=== PATIENT | female | born 2000 | race Hispanic/Latino ===

== ENCOUNTER 2022-09-27 13:40 | Emergency (ER) | payer SELFPAY ==
[2022-09-27] VITALS (14 sets, daily range): BP systolic 99–113; BP diastolic 66–68; PULSE 78–84; RESP 16; TEMP 36.7; O2SAT 100
--- NOTE | ~2022-09-27 | US_ITS ---
US right upper quadrant INDICATION: Right upper abdominal pain PROCEDURE: Realtime right upper abdominal ultrasound. COMPARISON: No prior studies for comparison. FINDINGS: Pancreas is not visualized. Over echotexture is increased, consistent with fatty infiltrat ion. There is normal directional flow in the portal vein. The gallbladder is normal without stones, gallbladder wall thickening or pericholecystic fluid. Comm on bile duct measures 3 mm. No sonographic Rich's sign. IMPRESSION: 1: Fatty infiltration of the liver. Reviewed, dictated and finalized at location A.
[2022-09-27 14:30] LABS: Basophils Percent Auto 0.2 % (0.2-1.2); Eosinophils Absolute Auto 0.1 K/mm3 (0-0.3); Eosinophils Percent Auto 1.1 % (0-4.4); Hematocrit 37.4 % (37.0-47.0); Hemoglobin 12.6 g/dL (12.0-15.0); Immature Granulocyte Absolute 0.04 K/mm3 (0.00-0.031); Immature Granulocyte Percent A 0.4 % (0-0.5); Lymphocytes Absolute Auto 2.01 K/mm3 (0.9-3.2); Lymphocytes Percent Auto 17.7 % (18.3-44.2); Mean Corpuscular HGB Conc 33.7 g/dl (32-36); Mean Corpuscular Hemoglobin 30.3 pg (26-34); Mean Corpuscular Volume 89.9 fl (80-100); Mean Platelet Volume 9.5 fl (7.4-10.4); Monocytes Absolute Auto 0.5 K/mm3 (0.1-0.6); Neutrophils Absolute Auto 8.7 K/mm3 (1.3-6.7); Neutrophils Percent Auto 76.6 % (45.5-73.1); Platelet Count Result 339 k/mm3 (150-375); Red Blood Count 4.16 M/mm3 (4.2-5.4); White Blood Count 11.4 K/mm3 (4.5-10.0)
[2022-09-27 14:42] LABS: Alanine Aminotransferase 19 U/L (6-35); Albumin Level 4.6 g/dL (3.5-5.1); Alkaline Phosphatase 97 U/L (38-126); Anion Gap 8 mmol/L (8-16); Aspartate Amino Transferase 25 U/L (14-36); Bilirubin,Total 0.6 mg/dL (0.2-1.3); Blood Urea Nitrogen 7 mg/dL (7-17); Calcium 8.9 mg/dL (8.4-10.2); Carbon Dioxide 25 mmol/L (22-30); Chloride 104 mmol/L (98-107); Estimated Glomerular Filt Rate > 60; Glucose 98 mg/dL (65-110); Lipase 69 U/L (23-300); Potassium 3.5 mmol/L (3.4-5.0); Sodium 137 mmol/L (137-145)
[2022-09-27 15:03] LABS: Appearance Urine Clear (Clear); Bacteria Urine None Seen /hpf; Bilirubin Urine Negative (Negative); Blood Urine Trace (Negative); Color Urine Yellow (Yellow); Glucose Urine UA Negative (Negative); Ketones Urine Trace mg/dL (Negative); Leukocyte Esterase Ur Negative LEU/UL (Negative); Nitrate Urine Negative (Negative); Non Pathogenic Casts 0-2; Protein Urine Negative (Negative); RBC Urine 0-2 /hpf (0-2); Specific Grav Ur 1.011 (1.001-1.035); Squamous Epithelial Cell Urine None seen /hpf (Few); Urobilinogen Urine 0.2 mg/dL (<2.0); WBC Urine 0-5 /hpf
[2022-09-27 15:16] LABS: Add Urine Microscopic? YES
--- NOTE | 2022-09-27 15:46 | ED.ABDPAIN ---
HPI - Abdominal Pain General Chief Complaint: Abdominal Pain Stated Complaint: abd pain Time Seen by Provider: 09/27/22 14:33 History of Present Illness HPI narrative: Patient is a 22-year-old female who presents ER with epigastric and right upper quadrant abdominal pain. Intermittent over the last couple days. No fevers or chills or sweats. Occasional nausea and vomiting. No diarrhea. No known sick contacts. No history of kidney stones or gallstones. Denies alleviating factors. Reported to nursing staff that she was concern for as well. Related Data Allergies Allergy/AdvReac Type Severity Reaction Status Date / Time No Known Allergies Allergy Verified 09/27/22 13:48 Review of Systems Review of Systems: All systems reviewed & are unremarkable except as noted in HPI and below Constitutional: Constitutional: Denies chills, Denies fatigue and Denies fever(s) Cardiovascular: Cardiovascular: Denies chest pain and Denies rapid heart rate Respiratory: Respiratory: Denies cough and Denies dyspnea Gastrointestinal: Gastrointestinal: Reports abdominal pain, Denies diarrhea, Reports nausea and Reports vomiting Genitourinary: Genitourinary: Denies nocturia, Denies dysuria and Denies flank pain PMFSH Past Medical History Medical History (Updated 09/27/22 @ 19:27 by Cosmo Merino MD) Healthy female adult Surgical History Surgical History (Updated 09/27/22 @ 19:27 by Cosmo Merino MD) No history of previous surgery Exam Narrative: GENERAL: Well-appearing, well-nourished, and in no acute distress. HEAD: Normocephalic, atraumatic. ENT: Mucous membranes moist. CHEST: Clear to auscultation. No respiratory distress. HEART: Regular rate and rhythm. Normal peripheral pulses. ABDOMEN: Soft, nontender, nondistended. EXTREMITIES: Normal range of motion. No edema. SKIN: Warm, dry, no rash. NEURO: Alert and oriented x3. PSYCH: Normal mood and affect. Course Course Emergency Course: Patient is resting comfortably. She has been informed of results. There is no evidence of cholecystitis. Urine clean without blood to increase concern for kidney stone or pyelonephritis. Patient felt appropriate for discharge with pain medication. May be having some abdominal cramping related to gastroenteritis. Vital Signs Vital signs: Vital Signs Temperature 98.0 F 09/27/22 13:46 Pulse Rate 78 09/27/22 13:46 Respiratory Rate 16 09/27/22 13:46 Blood Pressure 103/66 09/27/22 13:46 Pulse Oximetry 100 09/27/22 13:46 Oxygen Delivery Room Air 09/27/22 13:46 Temperature 98.0 F 09/27/22 13:46 Pulse Rate 84 09/27/22 17:41 Respiratory Rate 16 09/27/22 17:41 Blood Pressure 113/68 09/27/22 17:41 Pulse Oximetry 100 09/27/22 17:41 Oxygen Delivery Room Air 09/27/22 13:46 MDM - Abdominal Pain Lab Data 09/27/22 14:22 09/27/22 14:22 Labs: Lab Results 09/27/22 09/27/22 09/27/22 Range/Units 14:22 14:22 14:49 WBC 11.4 H (4.5-10.0) K/mm3 RBC 4.16 L (4.2-5.4) M/mm3 Hgb 12.6 (12.0-15.0) g/dL Hct 37.4 (37.0-47.0) % MCV 89.9 (80-100) fl MCH 30.3 (26-34) pg MCHC 33.7 (32-36) g/dl RDW 12.0 (11.5-14.5) % Plt Count 339 (150-375) k/mm3 MPV 9.5 (7.4-10.4) fl Immature Gran % (Auto) 0.4 (0-0.5) % Neut % (Auto) 76.6 H (45.5-73.1) % Lymph % (Auto) 17.7 L (18.3-44.2) % [place] % (Auto) 4.0 (2.6-8.5) % Eos % (Auto) 1.1 (0-4.4) % Baso % (Auto) 0.2 (0.2-1.2) % Lymph # (Auto) 2.01 (0.9-3.2) K/mm3 [place] # (Auto) 0.5 (0.1-0.6) K/mm3 Eos # (Auto) 0.1 (0-0.3) K/mm3 Baso # (Auto) 0.0 (0.0-0.1) K/mm3 Abs Immat Gran (auto) 0.04 H (0.00-0.031) K/mm3 Absolute Neuts (auto) 8.7 H (1.3-6.7) K/mm3 Absolute Nucleated RBC 0.0 (0.0-0.012) K/mm3 Nucleated RBC % 0.0 (0.0-0.2) % Sodium 137 (137-145) mmol/L Potassium 3.5 (3.4-5.0) mmol/L [place]
[2022-09-27] MEDS: MORPHINE SULFATE (*CRX) 2 MG/ML INJ IV PUSH (15:59)
== END 2022-09-27 17:47 | disposition home or self-care (01) ==
PROVIDERS: Emergency Provider Emergency Medicine
DX: R10.13 Epigastric pain (principal); K76.0 Fatty (change of) liver, not elsewhere classified
CPT/HCPCS: 36415; 76705; 80053; 81001; 81025; 83690; 85025; 96374; 99284; J2270

== ENCOUNTER 2023-09-06 13:55 | Inpatient (IN) | payer BC, SELFPAY ==
--- NOTE | ~2023-09-06 | XR_ITS ---
EXAMINATION: XR abdomen/kub 1V DATE: 09/08/2023 17:15 INDICATION: Abdominal pain. TECHNIQUE: A supine view of the abdomen on 2 radiographs was obtained. COMPARISON: CT abdomen and pelvis 09/07/2023 FINDINGS: There are no dilated loops of bowel. There is contrast and gas in the biliary tree. There i s mild intrahepatic biliary duct dilatation. The common duct is dilated to 9 mm. IMPRESSION: 1. Mild intrahepatic and extrahepatic biliary duct dilatation. Reviewed, dictated and finalized at location A.
--- NOTE | ~2023-09-06 | US_ITS ---
EXAMINATION: US abdomen limited DATE: 09/06/2023 17:24 INDICATION: Right upper quadrant abdominal pain TECHNIQUE: Multiple grayscale and Doppler ultrasound images of the abdomen were obtained. COMPARISON: 09/27/2022 FINDINGS: Stress portion of the pancreatic body appears normal. The region of the head and tail of the pancreas are obscured. Liver has normal echogenicity and contour, with a smooth surface. No liver lesion iden tified. No intrahepatic biliary duct dilation suspected. Portal venous flow was seen in the hepatopet al, normal direction and has normal Doppler waveform. Visualized proximal aorta and inferior vena cav a are normal. There are multiple shadowing gallstones in the mildly dilated gallbladder which measure s up to 3.4 cm maximal diameter but which is without evident gallbladder wall thickening. The common bile duct is mildly dilated to 7 mm. Sonographic Rich sign was reported as positive by the sonograp her. IMPRESSION: 1. Cholelithiasis with positive sonographic Rich's on but without evident gallbladder wall thickeni ng which is equivocal for acute cholecystitis. Could consider HIDA scan for further evaluation. 2. Mild dilation of the common bile duct to 7 mm which suggests possibility of a nonvisualized distal obstructing stone. Correlate with liver function tests and if clinically indicated would consider MR CP for further evaluation. Reviewed, dictated and finalized at location A. IMPRESSION: 1. Cholelithiasis with positive sonographic Rich's on but without evident gal lbladder wall thickening which is equivocal for acute cholecystitis. Could cons ider HIDA scan for further evaluation. 2. Mild dilation of the common bile duct to 7 mm which suggests possibility of a nonvisualized distal obstructing stone. Correlate with liver function tests a nd if clinically indicated would consider MRCP for further evaluation.
--- NOTE | ~2023-09-06 | CT_ITS ---
EXAMINATION: CT abdomen w con DATE: 09/08/2023 18:06 INDICATION: abdominal pain TECHNIQUE: Computed tomography (CT) of the abdomen was performed with 100 mL Omnipaque-350 intravenou s contrast. Automated exposure control and iterative reconstruction technique were employed. The dose -length product was 132.47 mGy-cm. COMPARISON: ERCP, same date; MR MRCP 09/07/2023. FINDINGS: Lower thorax: Unremarkable Liver: Normal. Biliary/Gallbladder: Borderline gallbladder distention. Gallstones. Mild intrahepatic and extra hepat ic duct dilation. Pneumobilia and retained contrast in the common bile duct, likely secondary to rece nt ERCP. Pancreas: Diffusely enlarged edematous pancreas. Spleen: Normal. Adrenals:No mass. Kidneys: No suspicious mass, obstructing stone, or hydronephrosis. GI tract: No small or large bowel dilation. Normal appendix. Mesentery/Peritoneum: No mass or free air. Moderate volume of free fluid in the upper abdomen and per ipancreatic spaces, extending partially into the bilateral paracolic gutters. No contrast extravasati on. Retroperitoneum: No mass. Soft Tissues: Soft tissues and body wall unremarkable. Bones: No acute osseous finding. IMPRESSION: Severe acute interstitial pancreatitis. Reviewed, dictated and finalized at location K.
--- NOTE | ~2023-09-06 | MR_ITS ---
EXAMINATION: MR MRCP wo/w con/w 3D wo ind DATE: 09/07/2023 12:05 INDICATION: Cholelithiasis with possible obstructing gallstone TECHNIQUE: Magnetic resonance imaging (MRI) of the abdomen was performed without and with 8 mL Multih ance intravenous contrast. Sequences included coronal T2-weighted SS-FSE, coronal T2-weighted FS SS-F SE, coronal T2-weighted FS FIESTA, axial T2-weighted FS FIESTA, axial T2-weighted FIESTA, sagittal T2 -weighted SS-FSE, axial T1-weighted dual-echo FSPGR, axial T2-weighted SS-FSE, axial T1-weighted LAVA , axial T2-weighted STIR FSE. Thick-slab T2-weighted FRFSE-XL images were obtained for magnetic reson ance cholangiopancreatography (MRCP). Rotating maximum intensity projection 3-D reconstructions of th e volumetric data were created by the technologist. Postcontrast sequences included a time course of axial T1-weighted LAVA. COMPARISON: Ultrasound dated 09/06/2023 FINDINGS: ABDOMEN MRI: Heart size is normal. No pericardial or pleural effusion. There are multiple small low signal intensi ty gallstones in the dependent aspect of the gallbladder which is mildly dilated to 3.8 cm without ev ident gallbladder wall thickening or pericholecystic inflammation presenting to suggest acute cholecy stitis. Liver, spleen, pancreas, bilateral adrenal glands and kidneys are normal. Visualized portions of bowels including the appendix are normal. Uterus, bilateral adnexa and visualized bladder are nor mal. No pathologically enlarged abdominal or upper pelvic lymphadenopathy. ABDOMEN MRCP: New mild intrahepatic biliary ductal dilation and slight interval progression in still mild dilation of the common bile duct which now measures up to 8 mm in maximal diameter. A single 4 mm gallstone is seen in the distal common bile duct with small amount of more amorphous appearing sludge in the tape ring distalmost common bile duct. IMPRESSION: 1. Cholelithiasis/choledocholithiasis with mild intra and extrahepatic biliary ductal dilation. Could consider ERCP for stone extraction. Reviewed, dictated and finalized at location A.
--- NOTE | ~2023-09-06 | XR_ITS ---
EXAMINATION: XR abdomen/kub 1V DATE: 09/10/2023 14:20 INDICATION: Abdominal distention. TECHNIQUE: A supine view of the abdomen on 2 radiographs was obtained. COMPARISON: CT abdomen 09/08/2023 FINDINGS: The small and large bowel are normal in caliber. There is a paucity of stool in the colon. IMPRESSION: 1. Nonobstructive bowel gas pattern. Reviewed, dictated and finalized at location A.
--- NOTE | ~2023-09-06 | XR_ITS ---
XR chest 1V portable DATE: 09/10/2023 10:53 INDICATION: Shortness of breath TECHNIQUE: Portable AP chest on 09/10/2023 1049 hours COMPARISON: None FINDINGS: There is suboptimal expansion of the lungs; technologist notes that this was the best inspi ration likely be obtained. There are bibasilar infiltrates and/atelectasis, particularly in the left retrocardiac area. Pneumoni a and aspiration should be considered. Normal heart size. No pleural effusion or pulmonary vascular congestion or pneumothorax is detected. There is prominent gaseous distention of small and large bowel as well as moderate gastric gaseous di stention. IMPRESSION: Bibasilar infiltrate and/atelectasis, most prominent in the left lower lobe Suboptimal expansion of the lungs Reviewed, dictated and finalized at location A. IMPRESSION: Bibasilar infiltrate and/atelectasis, most prominent in the left lo wer lobe Suboptimal expansion of the lungs
--- NOTE | ~2023-09-06 | XR_ITS ---
EXAMINATION: XR ERCP DATE: 09/08/2023 13:06 INDICATION: Choledocholithiasis. TECHNIQUE: 15 spot fluoroscopic images of the right upper quadrant were obtained during endoscopic re trograde cholangiopancreatography (ERCP). Fluoroscopy exposure time was 63 seconds. COMPARISON: MRCP 09/07/2023 FINDINGS: The endoscope is in the second portion of the duodenum. There is contrast opacification of the common duct. Images demonstrate a stone in the common duct and balloon sweeping of the common stephenie t. IMPRESSION: 1. Choledocholithiasis. Please refer to the ERCP procedure note for additional details. Reviewed, dictated and finalized at location A.
--- NOTE | 2023-09-06 14:02 | ED.ABDPAIN ---
HPI - Abdominal Pain General Chief Complaint: Abdominal Pain <Tia Fish PA-C - Last Filed: 09/09/23 09:16> Stated Complaint: abdominal pain/back pain <Tia Fish PA-C - Last Filed: 09/09/23 09:16> Time Seen by Provider: 09/06/23 14:02 <Tia Fish PA-C - Last Filed: 09/09/23 09:16> Focused HPI: This is a 23 year old female that presents to the ER for abdominal pain radiating into the flank. Reports associated nausea and vomiting. Denies fever, diarrhea, or dysuria. GENERAL: Well-appearing, well-nourished, and in no acute distress. HEAD: Normocephalic, atraumatic. CHEST: Clear to auscultation. ?No respiratory distress. HEART: Regular rate and rhythm.? NEURO: ?Alert and oriented x3. Patient screened in triage and initial orders placed.? ?Additional care and disposition to be based upon?diagnostic testing and treatment. <Tia Fish PA-C - Last Filed: 09/09/23 09:16> Related Data Allergies/Adverse Reactions: Allergies Allergy/AdvReac Type Severity Reaction Status Date / Time No Known Allergies Allergy Verified 09/08/23 11:25 <Tia Fish PA-C - Last Filed: 09/09/23 09:16> PMFSH Past Medical History Medical History: Medical History (Updated 09/09/23 @ 09:16 by Tia Fish PA-C) Cholelithiasis with choledocholithiasis Healthy female adult History of vaginal delivery 07/24/23 Nausea and vomiting in adult RUQ pain <Tia Fish PA-C - Last Filed: 09/09/23 09:16> Surgical History Surgical History: Surgical History (Updated 09/07/23 @ 09:45 by JESSE Valdez) No history of previous surgery <Tia Fish PA-C - Last Filed: 09/09/23 09:16> Family History Family History: Family History Other Family history non-contributory <Tia Fish PA-C - Last Filed: 09/09/23 09:16> Social History Social History: Social History Social History: Surrogate medical decision maker: Michele Krishnan, spouse. Code status: Full code. Smoking status: Never smoker Additional living arrangements comments: Lives with and their 2 children in [place]. 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 Spiritual care concerns: Yes <Tia Fish PA-C - Last Filed: 09/09/23 09:16> Exam Narrative: APPEARANCE: Well appearing, no pain, no distress, well-nourished. HEAD: normocephalic, atraumatic. EYES: PERRLA/EOMI, conjunctivae clear. NOSE: Normal no drainage EARS:TMS clear with good light reflex. THROAT: Pharynx clear, no exudate. NECK: Supple. No adenopathy, no masses. RESPIRATORY: Airway patent, respirations nonlabored. Clear to auscultation bilaterally, no rales, rhonchi, wheezing. CARDIOVASCULAR: Regular rate and rhythm without murmurs rubs or gallops. ABDOMINAL: Right upper quadrant abdominal pain MUSCULOSKELETAL: Moves all extremities. Strength/ROM intact, No edema, No calf tenderness. NEURO: Alert. Cranial nerves II through XII intact. Grossly intact <Curtis Shin MD - Last Filed: 09/08/23 21:44> Course Course Emergency Course: Patient was admitted <Curtis Shin MD - Last Filed: 09/08/23 21:44> Vital Signs Vital signs: Vital Signs Temperature 98.8 F 09/06/23 17:59 Pulse Rate 62 09/06/23 17:59 Respiratory Rate 18 09/06/23 17:59 Blood Pressure 112/80 09/06/23 17:59 Pulse Oximetry 100 09/06/23 17:59 Temperature 98.7 F 09/09/23 08:34 Pulse Rate 97 09/09/23 08:34 Respiratory Rate 17 09/09/23 08:34 Blood Pressure 127/76 09/09/23 08:34 Pulse Oximetry 100 09/09/23 08:34 Oxygen Delivery Room Air 09/08/23 20:00 <Tia Fish PA-C - Last Filed: 09/09/23 09:16> Vital Signs Temperature 98.8 F 09/06/23 17:59 Pulse Rate 62 09/06/23 17:59 Respiratory Rate 18 09/06/23 17:59 Blood Pressure 112/80
[2023-09-06 15:06] LABS: Basophils Percent Auto 0.3 % (0.2-1.2); Eosinophils Absolute Auto 0.2 K/mm3 (0-0.3); Eosinophils Percent Auto 2.7 % (0-4.4); Hemoglobin 12.3 g/dL (12.0-15.0); Immature Granulocyte Absolute 0.01 K/mm3 (0.00-0.031); Immature Granulocyte Percent A 0.2 % (0-0.5); Lymphocytes Percent Auto 30.8 % (18.3-44.2); Mean Corpuscular HGB Conc 32.4 g/dl (32-36); Mean Corpuscular Hemoglobin 27.5 pg (26-34); Mean Corpuscular Volume 84.8 fl (80-100); Mean Platelet Volume 9.7 fl (7.4-10.4); Monocytes Absolute Auto 0.4 K/mm3 (0.1-0.6); Monocytes Percent Auto 6.3 % (2.6-8.5); Neutrophils Absolute Auto 3.5 K/mm3 (1.3-6.7); Neutrophils Percent Auto 59.7 % (45.5-73.1); Platelet Count Result 352 k/mm3 (150-375); Red Blood Count 4.48 M/mm3 (4.2-5.4); Red Cell Distribution Width 18.3 % (11.5-14.5); White Blood Count 5.8 K/mm3 (4.5-10.0)
[2023-09-06 15:15] LABS: Alanine Aminotransferase 392 U/L (6-35); Albumin Level 4.7 g/dL (3.5-5.1); Alkaline Phosphatase 345 U/L (38-126); Anion Gap 9 mmol/L (4-12); Aspartate Amino Transferase 442 U/L (14-36); Bilirubin,Total 3.7 mg/dL (0.2-1.3); Blood Urea Nitrogen 8 mg/dL (7-17); Calcium 9.2 mg/dL (8.4-10.2); Carbon Dioxide 25 mmol/L (22-30); Chloride 106 mmol/L (98-107); Estimated Glomerular Filt Rate > 60; Glucose 127 mg/dL (65-110); Lipase 152 U/L (23-300); Potassium 3.7 mmol/L (3.4-5.0); Sodium 140 mmol/L (137-145)
[2023-09-06 16:08] LABS: Bacteria Urine None Seen /hpf; Non Pathogenic Casts 0-2; RBC Urine 0-2 /hpf (0-2); Squamous Epithelial Cell Urine None Seen /hpf (Few); WBC Urine 0-5 /hpf (0-3)
[2023-09-06 16:18] LABS: Appearance Urine Clear (Clear); Color Urine Yellow (Yellow)
[2023-09-06 16:19] LABS: Bilirubin Urine 3+ (Negative); Blood Urine Trace-intact (Negative); Glucose Urine UA Negative (Negative); Ketones Urine Negative (Negative); Leukocyte Esterase Ur Negative LEU/UL (Negative); Nitrate Urine Negative (Negative); Protein Urine Negative (Negative); Specific Grav Ur 1.015 (1.001-1.035); pH Urine 5.5 (5.0-9.0)
[2023-09-06 16:20] LABS: Add Urine Microscopic? YES
[2023-09-06 17:59] VITALS: BP 112/80; PULSE 62; RESP 18; TEMP 37.1; O2SAT 100
[2023-09-06 19:10] VITALS: BP 118/82; PULSE 68; RESP 18; O2SAT 100
[2023-09-06 19:58] VITALS: BMI 18.8
[2023-09-06 19:59] VITALS: BP 116/74; PULSE 64; RESP 16; TEMP 36.6; O2SAT 100
--- NOTE | 2023-09-06 20:17 | ADMGEN ---
This patient, Shaylee Andujar, was admitted to 2 Medical Room 254-01. Patient/family oriented to hospital policies and general routines including ID bracelet, bed and alarms, visiting hours, pain management, procedures, bathroom and other care routines, personal items, smoking policy, room service/diet, and visiting hours. Information on how to activate the Rapid Response Team has been discussed. Patient/Family are encouraged to report perceived risks to care and to ask questions if they do not understand what they are told or what they should do.
[2023-09-06] MEDS: MORPHINE SULFATE (*CRX) 2 MG/ML INJ 1 MG IV PUSH (20:56)
[2023-09-06] MEDS: SODIUM CHLORIDE 0.9% IV 1,000 ML 75 ML IV CONT (21:00)
--- NOTE | 2023-09-06 22:41 | PM.IMHP ---
H&P: HPI History of Present Illness Date/Time: 09/06/23 21:00 Chief Complaint: Abdominal pain. Narrative: This is a very pleasant 23-year-old female without medical history who presented to the emergency department via private vehicle for evaluation of abdominal pain. She is [place] speaking and the following history is obtained with the aid of a video rehab tech service. Tuesday she had tacos for lunch and not long thereafter she developed colicky pain in the epigastric region which radiated to the right upper quadrant and around through the back. She had sweats and nausea with that and endorses 1 episode of emesis. She felt a bit better after vomiting however the pain has continued to come and go since that time. Tylenol did not seem to help much. Her appetite has been poor since then and she has only had a little bit of broth here and there. Family members who had the same lunch have not experienced similar symptoms. She has never had symptoms. She denies fever, hematemesis, bloating, belching, epigastric pain, indigestion, diarrhea, hematochezia, and melena. In the ED: She was afebrile on arrival with stable vital signs. Labs were significant for a total bilirubin of 3.7, AST 442, ALT 392, alkaline phosphatase 345, lipase 152. Abdominal ultrasound showed cholelithiasis with positive sonographic Rich's but without evident gallbladder wall thickening and mild dilation of the common bile duct to 7 mm suggesting the possibility of a nonvisualized distal obstructing stone. She is being admitted in this setting for further evaluation. Review of Systems Review of Systems: Twelve systems were reviewed. She took Tylenol as prescribed and not in excess. No concerns for hepatitis exposure. Denies pruritus and rash. She has a 6-week-old daughter at home and has not had a menstrual cycle since. Except as documented, all other systems were reviewed and are negative. [facility] Past Medical History Medical History Healthy female adult Surgical History Surgical History No history of previous surgery Family History Family History Other Family history non-contributory Social History Social History (Updated 09/06/23 @ 22:47 by Shannan Wilhelm PA-C) Social History: Surrogate medical decision maker: Michele Krishnan, spouse. Code status: Full code. Smoking status: Never smoker Additional living arrangements comments: Lives with and their 2 children in [place]. 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 Spiritual care concerns: Yes Meds Home Medications and Allergies Home Medications Medication Instructions Recorded Confirmed Type famotidine 20 mg tablet (Pepcid) 20 mg PO HS #14 tabs 09/27/22 09/06/23 Rx Allergies Allergy/AdvReac Type Severity Reaction Status Date / Time No Known Allergies Allergy Verified 09/27/22 13:48 Vital Signs Vital Signs - 24 hr 09/06/23 17:59 09/06/23 19:10 09/06/23 19:59 Temperature 98.8 F 98 F Pulse Rate 62 68 64 Respiratory Rate 18 18 16 Blood Pressure 112/80 118/82 116/74 Pulse Oximetry 100 100 100 Exam Narrative: General: Mildly ill-appearing female sitting up in bed in a moderate amount of pain. Weight: 49.7 kg. BMI: 18.8. HEENT: Normocephalic, atraumatic. PERRL, EOMI. Mild scleral icterus. Tacky mucous membranes. Neck: Supple. Respiratory: Lungs are clear to auscultation bilaterally. Cardiovascular: Regular rate and rhythm with S1-S2. Gastrointestinal: Abdomen is soft and nondistended with positive bowel sounds. She is tender to palpation in the epigastric region and right upper quadrant with equivocal Rich sign. No organomegaly. No guarding or rebound tenderness. Skin: Warm and dry. Slight jaundice. Extremities: No cyanosis, clubbing, or edema. Radial
[2023-09-07 04:40] VITALS: BP 123/73; PULSE 67; RESP 16; TEMP 36.7; O2SAT 99
--- NOTE | 2023-09-07 08:20 | PM.IMPN ---
Progress Note: A&P Assessment and Plan (1) Cholelithiasis: Code(s): K80.20 - Calculus of gallbladder without cholecystitis without obstruction Status: Acute Assessment and Plan: 09/07/2023: Ultrasound of abdomen showing cholelithiasis with positive sonographic Rcih's equivocal for acute cholecystitis, mild dilatation of the common bile duct of 7 mm suggestive of a distal obstructing stone MRCP showing cholelithiasis/choledocholithiasis with mild intra and extra hepatic biliary ductal dilatation General surgery consulted GI consulted. Continue with pain control Remain NPO, continue IV fluids Plan for ERCP tomorrow (2) Transaminitis: Code(s): R74.01 - Elevation of levels of liver transaminase levels Status: Acute Assessment and Plan: 09/07/2023: Total bili 3.7, AST 442, ALT 392, alk-phos 345 Rise in bilirubin and liver enzymes likely due to obstructing stone (3) Common bile duct dilation: Code(s): K83.8 - Other specified diseases of biliary tract Status: Acute Assessment and Plan: See above plan of care Time Spent With Patient Time with patient: 25 - 35 minutes Subjective Date/time seen: 09/07/23 08:20 Interval history: This is a 23-year-old female who presented to the hospital 09/06/2023 with chief complaint of abdominal pain. Workup in the hospital included abdominal ultrasound which showed cholelithiasis with positive Rich's consistent with acute cholecystitis mild dilatation of the common bile duct 7 mm suggesting possibility of a non visualized distal obstructing stone. Labs today show total bili of 3.7, AST 42, ALT 392, alk-phos 340, otherwise unremarkable. Patient was given morphine in the ED, GI and General surgery consulted. Patient was made NPO and started on IV fluids. Patient is Macedonian-speaking only, automobile rental representative cart at bedside. On examination today patient is still reporting right upper quadrant pain med. Patient denies any fever, chills, nausea, vomiting, diarrhea, chest pain, shortness a breath. Patient endorses abdominal pain that is epigastric and radiates to her back. Patient went for MRCP which shown cholelithiasis/choledocholithiasis with mild intra and extrahepatic biliary ductal dilatation. Plan for ERCP tomorrow. Review of Systems Review of Systems: All systems reviewed & are unremarkable except as noted in HPI and below Constitutional: Constitutional: Reports as per HPI and Reports no additional constitutional complaints Eyes: Eyes: Reports as per HPI and Reports no additional eye complaints ENT: Reports system reviewed and no additional complaints, except as documented and Reports as per HPI Cardiovascular: Cardiovascular: Reports as per HPI and Reports no additional cardiovascular complaints Respiratory: Respiratory: Reports as per HPI and Reports no additional respiratory complaints Gastrointestinal: Gastrointestinal: Reports as per HPI and Reports no additional gastrointestinal complaints Genitourinary: Genitourinary: Reports no additional female genitourinary complaints and Reports as per HPI Musculoskeletal: Musculoskeletal: Reports no additional musculoskeletal complaints and Reports as per HPI Integumentary/Breasts: Skin/Breast: Reports system reviewed and no additional complaints, except as docu and Reports as per HPI Neurologic: Reports system reviewed and no additional complaints, except as documented and Reports as per HPI Psychiatric: Psychiatric: Reports no additional psychiatric complaints and Reports as per HPI Exam Narrative: General: In no acute distress, well nourished, Macedonian speaking only Head: atraumatic, no encephalopathy Eyes: EOMI, PERRLA, sclera clear ENT: moist mucous membranes, nasal passages clear Neck: supple, no JVD, no adenopathy, trachea midline Cardiac: Normal S1 and S2. RRR, No murmur, gallops or friction rubs, peripheral pulses intact. Respiratory: Lungs clear to auscultation, no adv
--- NOTE | 2023-09-07 09:32 | PM.CNGS ---
Assessment and Plan Assessment and plan (1) Cholelithiasis: Code(s): K80.20 - Calculus of gallbladder without cholecystitis without obstruction Status: Acute Assessment and Plan: RUQ US showing cholelithiasis with a positive sonographic Rich's sign and mild common bile duct dilatation. She has elevated LFTs with a total bilirubin of 3.7. Agree with ordering the MRCP to evaluate for choledocholithiasis. GI has been consulted and she will likely need an ERCP if there are findings of a common bile duct stone. She continues to have abdominal pain and is tender in the RUQ on exam. Discussed with the patient that she will eventually need a laparoscopic cholecystectomy, but timing will depend on the MRCP findings. If she requires an ERCP, then we will follow along to plan for optimal timing of surgery after the ERCP. If GI is not planning an ERCP and there are no findings of choledocholithiasis, then we could consider proceeding with a cholecystectomy sooner. We discussed the details of a laparoscopic cholecystectomy that would be done by Dr. Palmer under general anesthesia. Description of the procedure, risks, benefits, expected outcomes, and expected recovery were discussed. We also discussed the risks of bile leak and bile duct injury, liver/bowel injury, bleeding, and infection. Also discussed the possibility of having to convert to an open procedure if necessary. The patient agrees with proceeding with surgery when appropriate. Will keep her NPO with IV fluids and analgesics as needed for now and follow along. (2) Common bile duct dilation: Code(s): K83.8 - Other specified diseases of biliary tract Status: Acute Assessment and Plan: RUQ US showed mild dilation of the CBD to 7 mm. These findings with the elevated total bilirubin are concerning for choledocholithiasis. Will await MRCP. (3) Transaminitis: Code(s): R74.01 - Elevation of levels of liver transaminase levels Status: Acute Plan I have discussed the patient's case and plan of care with Dr. Palmer. History of Present Illness Consult details Consult date: 09/07/23 Reason for consult: other (Acute cholecystitis) Requesting physician: Curtis Shin MD Narrative: This is a 23-year-old [place]-speaking woman who we have been asked to see in surgical consultation for acute cholecystitis. Our entire discussion and history was obtained by using the video operations controller. She reports a sudden onset of right upper quadrant abdominal pain 3 days ago. She had eaten tacos for lunch and later that evening developed the abdominal pain. Her pain radiated to her mid back. She reports this pain has been constant ever since it started on Tuesday. She endorses nausea and 1 episode of vomiting. She did try eating over the next two days, but her pain was aggravated by food. She reports having a multiple more mild episodes of this pain in the past that would eventually resolve. She did go to the ER at a hospital in [place] about 3 weeks ago for similar pain, but was told she was constipated and her pain did eventually improve. In review of her chart, she was also seen in our ER about a year ago for similar pain with a negative workup and the right upper quadrant ultrasound that showed a normal gallbladder without stones. In the ER yesterday, her labs showed a normal white blood cell count, total bilirubin 3.7, AST 442, ALT 392, alk-phos 345, lipase normal. Right upper quadrant abdominal ultrasound showed cholelithiasis with positive sonographic Rich sign but without evident gallbladder wall thickening which is equivocal for acute cholecystitis. Also seen is mild dilation of the common bile duct to 7 mm which suggests possibility of non visualized distal obstructing stone. The patient was admitted to the hospitalist service. She has an MRCP ordered for today. She is now seen on the medical floor. She is still having right upper quadrant abdominal pain. She also e
[2023-09-07] MEDS: SODIUM CHLORIDE 0.9% IV 1,000 ML 75 ML IV CONT (10:18)
[2023-09-07] MEDS: MORPHINE SULFATE (*CRX) 2 MG/ML INJ 1 MG IV PUSH ×2 (10:18→14:33)
[2023-09-07 12:45] VITALS: BP 105/64; PULSE 65; RESP 16; TEMP 36.3; O2SAT 100
--- NOTE | 2023-09-07 15:10 | WPDGICN ---
Assessment and Plan Assessment and plan (1) Cholelithiasis with choledocholithiasis: Code(s): K80.70 - Calculus of gallbladder and bile duct without cholecystitis without obstruction Status: Acute Assessment and Plan: will proceed with ercp tomorrow to remove bile duct stone, surgery is also on board to consider lap estela (2) Common bile duct dilation: Code(s): K83.8 - Other specified diseases of biliary tract Status: Acute Assessment and Plan: from bile duct stone ercp in morning (3) Transaminitis: Code(s): R74.01 - Elevation of levels of liver transaminase levels Status: Acute Assessment and Plan: biliary related (4) RUQ pain: Code(s): R10.11 - Right upper quadrant pain Status: Acute (5) Nausea and vomiting in adult: Code(s): R11.2 - Nausea with vomiting, unspecified Status: Acute Assessment and Plan: medical support GI Consult Note Consult date/time: 09/07/23 15:10 Reason for consult: ruq pain, elevated liver enzymes HPI: Shaylee Andujar is a 23 year old female female here with new onset of severe ruq with nausea and vomiting. She had similar episode few weeks ago for which went to another hospital, she was told that related to constipation and sent home. This time pain started about 3 days ago after she had tacos and later that evening developed the abdominal pain, radiated to her mid back. Pain now is constant and mostly in ruq. She had one episode of nausea and vomiting at home. Labs showed a normal white blood cell count, total bilirubin 3.7, AST 442, ALT 392, alk-phos 345, lipase normal.? Right upper quadrant abdominal ultrasound showed cholelithiasis with positive sonographic Rich sign but without evident gallbladder wall thickening which is equivocal for acute cholecystitis.? Also seen is mild dilation of the common bile duct to 7 mm which suggests possibility of non visualized distal obstructing stone.??MRCP just reviewed and showed 4 mm in distal CBD. Denies gastric surgeries. Review of Systems Review of Systems: All systems reviewed & are unremarkable except as noted in HPI and below Constitutional: Constitutional: Reports no additional constitutional complaints, Denies fever(s) and Denies weakness Eyes: Eyes: Reports no additional eye complaints ENT: Reports system reviewed and no additional complaints, except as documented Cardiovascular: Cardiovascular: Reports no additional cardiovascular complaints, Denies chest pain and Denies pedal edema Respiratory: Respiratory: Reports no additional respiratory complaints and Denies dyspnea Gastrointestinal: Gastrointestinal: Reports as per HPI, Reports no additional gastrointestinal complaints, Reports abdominal pain, Denies melena, Denies bloating, Reports nausea and Reports vomiting Genitourinary: Genitourinary: Reports no additional female genitourinary complaints Musculoskeletal: Musculoskeletal: Denies neck pain Integumentary/Breasts: Skin/Breast: Denies rash Neurologic: Denies confusion Psychiatric: Psychiatric: Denies behavioral changes [facility], [facility] Past Medical History Medical History (Updated 09/07/23 @ 15:15 by Pete Orr MD) Cholelithiasis with choledocholithiasis Healthy female adult History of vaginal delivery 07/24/23 Nausea and vomiting in adult RUQ pain Surgical History Surgical History (Updated 09/07/23 @ 09:45 by JESSE Valdez) No history of previous surgery Family History Family History Other Family history non-contributory Social History Social History Social History: Surrogate medical decision maker: Michele Krishnan, spouse. Code status: Full code. Smoking status: Never smoker Additional living arrangements comments: Lives with and their 2 children in [place]. Michael
[2023-09-07 17:15] VITALS: BP 114/71; PULSE 74; RESP 12; TEMP 36.6; O2SAT 100
[2023-09-07 20:00] VITALS: BP 107/67; PULSE 65; RESP 18; TEMP 36.7; O2SAT 100
[2023-09-07] MEDS: FAMOTIDINE 20 MG TABLET PO (20:25)
[2023-09-08] VITALS (14 sets, daily range): BP systolic 110–138; BP diastolic 64–87; PULSE 51–96; RESP 15–24; TEMP 36.2–36.9; O2SAT 96–100
[2023-09-08] MEDS: MORPHINE SULFATE (*CRX) 2 MG/ML INJ 1 MG IV PUSH ×2 (01:41→16:46)
[2023-09-08] MEDS: SODIUM CHLORIDE 0.9% IV 1,000 ML 75 ML IV CONT ×2 (01:45→20:11)
--- NOTE | 2023-09-08 08:01 | PM.IMPN ---
Progress Note: A&P Assessment and Plan (1) Nausea and vomiting in adult: Code(s): R11.2 - Nausea with vomiting, unspecified Status: Acute (2) RUQ pain: Code(s): R10.11 - Right upper quadrant pain Status: Acute (3) Cholelithiasis with choledocholithiasis: Code(s): K80.70 - Calculus of gallbladder and bile duct without cholecystitis without obstruction Status: Acute (4) Common bile duct dilation: Code(s): K83.8 - Other specified diseases of biliary tract Status: Acute (5) Cholelithiasis: Code(s): K80.20 - Calculus of gallbladder without cholecystitis without obstruction Status: Acute (6) Transaminitis: Code(s): R74.01 - Elevation of levels of liver transaminase levels Status: Acute Plan (1) Cholelithiasis: ?Code(s): K80.20 - Calculus of gallbladder without cholecystitis without obstruction ?Status:?Acute ?Assessment and Plan: 09/07/2023: Ultrasound of abdomen showing cholelithiasis with positive sonographic Rich's equivocal for acute cholecystitis, mild dilatation of the common bile duct of 7 mm suggestive of a distal obstructing stone MRCP showing cholelithiasis/choledocholithiasis with mild intra and extra hepatic biliary ductal dilatation General surgery consulted, plans laparoscopic cholecystectomy GI consulted. Continue with pain control Remain NPO, continue IV fluids ERCP was done September 07, pain is improving, gallstone was is tried from biliary duct and pancreatic duct (2) Transaminitis: ?Code(s): R74.01 - Elevation of levels of liver transaminase levels ?Status:?Acute ?Assessment and Plan: 09/07/2023: Total bili 3.7, AST 442, ALT 392, alk-phos 345 Rise in bilirubin and liver enzymes likely due to obstructing stone(3) Common bile duct dilation: ?Code(s): K83.8 - Other specified diseases of biliary tract ?Status:?Acute ?Assessment and Plan: See above plan of care Abnormal discharge from vagina Patient delivered her baby in July Noticed abnormal discharge from vagina today Chronic patient is afebrile, blood pressure stable Consult OBGYN for evaluation and treatment Subjective Date/time seen: 09/08/23 08:01 Interval history: Patient is a Indian speaker, the conversation is interpreted by Priya reference #[id number] I saw and examined the patient today. Patient underwent ERCP, gallstone was extracted from common bile duct. Patient feels pain is improving, denies chest pain shortness breath, nausea vomiting. Abdomen pain is improving, patient complaining of abnormal discharge from vagina, patient delivered a baby in July. Patient is afebrile, blood pressure stable Exam Narrative: General: In no acute distress, well nourished, Indian speaking only Head: atraumatic, no encephalopathy Eyes: EOMI, PERRLA, sclera clear ENT: moist mucous membranes, nasal passages clear Neck: supple, no JVD, no adenopathy, trachea midline Cardiac: Normal S1 and S2. RRR, No murmur, gallops or friction rubs, peripheral pulses intact. Respiratory: Lungs clear to auscultation, no adventitious lung sounds Gastrointestinal: soft, non-distended, mid epigastric pain that radiates to her back, normoactive bowel sounds. : voiding without difficulty. Abnormal discharge from vagina Extremities: moves all extremities well, no edema, good ROM, strength 5/5 Skin: clean, dry, intact. No wounds or lesions. Neuro: Alert and oriented x4, cranial nerves intact, no neuro deficits. Psych: normal mood, normal affect, interactive Objective Data Vital Signs Vital Signs: Vital Signs - 24 hr 09/07/23 10:00 09/07/23 12:45 09/07/23 17:15 Temperature 97.4 F L 98 F Pulse Rate 65 74 Respiratory Rate 16 12 Blood Pressure 105/64 114/71 Pulse Oximetry 100 100 Oxygen Delivery Room Air 09/07/23 20:00 09/07/23 20:00 09/08/23 00:00 Temperature 98.0 F 97.1 F L Pulse Rate 65 84 Respiratory Ra
[2023-09-08 08:47] LABS: Basophils Percent Auto 0.5 % (0.2-1.2); Eosinophils Absolute Auto 0.2 K/mm3 (0-0.3); Eosinophils Percent Auto 2.7 % (0-4.4); Hematocrit 37.2 % (37.0-47.0); Hemoglobin 11.8 g/dL (12.0-15.0); Immature Granulocyte Absolute 0.02 K/mm3 (0.00-0.031); Immature Granulocyte Percent A 0.3 % (0-0.5); Lymphocytes Absolute Auto 2.75 K/mm3 (0.9-3.2); Lymphocytes Percent Auto 47.1 % (18.3-44.2); Mean Corpuscular HGB Conc 31.7 g/dl (32-36); Mean Corpuscular Hemoglobin 27.3 pg (26-34); Mean Corpuscular Volume 85.9 fl (80-100); Mean Platelet Volume 9.6 fl (7.4-10.4); Monocytes Absolute Auto 0.4 K/mm3 (0.1-0.6); Monocytes Percent Auto 6.8 % (2.6-8.5); Neutrophils Absolute Auto 2.5 K/mm3 (1.3-6.7); Neutrophils Percent Auto 42.6 % (45.5-73.1); Platelet Count Result 348 k/mm3 (150-375); Red Blood Count 4.33 M/mm3 (4.2-5.4); Red Cell Distribution Width 18.9 % (11.5-14.5); White Blood Count 5.8 K/mm3 (4.5-10.0)
[2023-09-08 09:04] LABS: Alanine Aminotransferase 251 U/L (6-35); Albumin Level 4.2 g/dL (3.5-5.1); Alkaline Phosphatase 376 U/L (38-126); Anion Gap 9 mmol/L (4-12); Aspartate Amino Transferase 135 U/L (14-36); Bilirubin,Total 5.2 mg/dL (0.2-1.3); Blood Urea Nitrogen 9 mg/dL (7-17); Calcium 9.5 mg/dL (8.4-10.2); Carbon Dioxide 21 mmol/L (22-30); Chloride 109 mmol/L (98-107); Estimated CRCL calculation 96 ml/min; Estimated Glomerular Filt Rate > 60; Glucose 83 mg/dL (65-110); Potassium 3.7 mmol/L (3.4-5.0); Sodium 139 mmol/L (137-145)
--- NOTE | 2023-09-08 11:17 | WPDANESEPPF ---
Anes - Initial Pre Proc Eval Procedure: Operation Date: 09/08/23 12:00 Proposed Procedures p Endoscopic Retro Cholangiopancreatogram - Pete Orr MD Date/Time: 09/08/23 11:17 Surgeon: Tommy Lua MD Pre Op Diagnosis: Acute cholecystitis, Obstructing gallstone Patient Data Age: 23 Gender: F Height: 1.63 m Weight: 49.7 kg Last Vital Signs Temp 97.1 F L 09/08/23 04:00 Pulse 70 09/08/23 04:00 Resp 16 09/08/23 04:00 BP 112/64 09/08/23 04:00 Pulse Ox 99 09/08/23 04:00 O2 Del Method Room Air 09/08/23 09:40 Allergies Allergy/AdvReac Type Severity Reaction Status Date / Time No Known Allergies Allergy Verified 09/27/22 13:48 Home Medications Medication Instructions Recorded Confirmed Type famotidine 20 mg tablet (Pepcid) 20 mg PO HS #14 tabs 09/27/22 09/06/23 Rx Laboratory Tests 09/08/23 08:28 WBC 5.8 K/mm3 (4.5-10.0) RBC 4.33 M/mm3 (4.2-5.4) Hgb 11.8 L g/dL (12.0-15.0) Hct 37.2 % (37.0-47.0) MCV 85.9 fl (80-100) MCH 27.3 pg (26-34) MCHC 31.7 L g/dl (32-36) RDW 18.9 H % (11.5-14.5) Plt Count 348 k/mm3 (150-375) MPV 9.6 fl (7.4-10.4) Immature Gran % (Auto) 0.3 % (0-0.5) Neut % (Auto) 42.6 L % (45.5-73.1) Lymph % (Auto) 47.1 H % (18.3-44.2) [place] % (Auto) 6.8 % (2.6-8.5) Eos % (Auto) 2.7 % (0-4.4) Baso % (Auto) 0.5 % (0.2-1.2) Lymph # (Auto) 2.75 K/mm3 (0.9-3.2) [place] # (Auto) 0.4 K/mm3 (0.1-0.6) Eos # (Auto) 0.2 K/mm3 (0-0.3) Baso # (Auto) 0.0 K/mm3 (0.0-0.1) Abs Immat Gran (auto) 0.02 K/mm3 (0.00-0.031) Absolute Neuts (auto) 2.5 K/mm3 (1.3-6.7) Absolute Nucleated RBC 0.000 K/mm3 (0.0-0.012) Nucleated RBC % 0.0 % (0.0-0.2) Sodium 139 mmol/L (137-145) Potassium 3.7 mmol/L (3.4-5.0) Chloride 109 H mmol/L (98-107) Carbon Dioxide 21 L mmol/L (22-30) Anion Gap 9 mmol/L (4-12) BUN 9 mg/dL (7-17) Creatinine 0.60 L mg/dL (0.7-1.0) Estim Creat Clear Calc 96 ml/min Estimated GFR > 60 (59 - ) Glucose 83 mg/dL (65-110) Calcium 9.5 mg/dL (8.4-10.2) Total Bilirubin 5.2 H mg/dL (0.2-1.3) AST 135 H U/L (14-36) ALT 251 H U/L (6-35) Alkaline Phosphatase 376 H U/L (38-126) Total Protein 8.0 g/dL (6.3-8.2) Albumin 4.2 g/dL (3.5-5.1) Patient hx anesthesia problems: none Family hx anesthesia problems: none Results Review: All pre-operative results and documents have been reviewed as part of the pre-operative evaluation. [facility] Past Medical History Medical History (Updated 09/07/23 @ 15:15 by Pete Orr MD) Cholelithiasis with choledocholithiasis Healthy female adult History of vaginal delivery 07/24/23 Nausea and vomiting in adult RUQ pain Surgical History Surgical History (Updated 09/07/23 @ 09:45 by JESSE Valdez) No history of previous surgery Family History Family History Other Family history non-contributory Social History Social History Social History: Surrogate medical decision maker: Michele Krishnan, spouse. Code status: Full code. Smoking status: Never smoker Additional living arrangements comments: Lives with and their 2 children in [place]. 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 Spiritual care concerns: Yes Anes - Eval Final PreProcedure Day of Procedure 09/08/23 11:17 Patient weight: normal Heart: regular rate and rhythm Lungs: clear to auscultation Airway: Mallampati scale class II Neurological: alert and oriented Last oral intake: >/= 8 hours ASA classification: II Emergent: no Anesthetic plan: proceed Anesthesia type and monitoring: general ETT and standard monitoring Results Review: All pre-operative result
[2023-09-08] MEDS: LACTATED RINGERS 1,000 ML 150 ML IV CONT (11:39)
[2023-09-08] MEDS: INDOMETHACIN 50 MG SUPP.RECT RECTAL (12:36)
--- NOTE | 2023-09-08 16:00 | P.PNGS_ITS ---
Progress Note: A&P Assessment and Plan (1) Cholelithiasis with choledocholithiasis: Code(s): K80.70 - Calculus of gallbladder and bile duct without cholecystitis without obstruction Status: Acute Assessment and Plan: * I discussed findings of ERCP with patient. She would like to proceed with laparoscopic cholecystectomy. Will plan to repeat labs tomorrow morning and could consider laparoscopic cholecystectomy if improving. She was asking about the epigastric pain and I discussed that there is a possibility of pancreatitis after ERCP. If this occurs, surgery will have to be delayed until showing signs of improvement. Will continue to follow along with patient. (2) Transaminitis: Code(s): R74.01 - Elevation of levels of liver transaminase levels Status: Acute Subjective Subjective Date/Time Seen: 09/08/23 at 16:00 Interval history: Patient seen and examined on 09/07. Progress note placed as a late entry. Patient seen in room after undergoing ERCP today. Having some epigastric discomfort. Discussed options of proceeding with laparoscopic surgery. Patient would like to stay to have this done if possible. Exam GI: Inspection: normal to inspection and non-distended GI Palp: Yes Tenderness to palpation present (GI) (Mild epigastric tenderness.) Auscultation: normal bowel sounds Objective Data Meds/Results Radiology Results: ITS Impressions Abdomen Ultrasound 09/06/23 17:27 IMPRESSION: 1. Cholelithiasis with positive sonographic Rich's on but without evident gallbladder wall thickening which is equivocal for acute cholecystitis. Could consider HIDA scan for further evaluation. 2. Mild dilation of the common bile duct to 7 mm which suggests possibility of a nonvisualized distal obstructing stone. Correlate with liver function tests and if clinically indicated would consider MRCP for further evaluation. MRCP 09/07/23 12:17 IMPRESSION: 1. Cholelithiasis/choledocholithiasis with mild intra and extrahepatic biliary ductal dilation. Could consider ERCP for stone extraction. Endo Retro Cholangiopancreatogram 09/08/23 13:31 IMPRESSION: 1. Choledocholithiasis. Please refer to the ERCP procedure note for additional details.
[2023-09-08] MEDS: HYDROmorphone HCL INJ (*CRX) 1 MG/ML SYR IV PUSH ×3 (17:22→22:34)
[2023-09-08 17:49] LABS: Hematocrit 44.7 % (37.0-47.0); Hemoglobin 14.6 g/dL (12.0-15.0); Mean Corpuscular HGB Conc 32.7 g/dl (32-36); Mean Corpuscular Hemoglobin 27.7 pg (26-34); Mean Corpuscular Volume 84.8 fl (80-100); Mean Platelet Volume 9.8 fl (7.4-10.4); Platelet Count Result 424 k/mm3 (150-375); Red Blood Count 5.27 M/mm3 (4.2-5.4); Red Cell Distribution Width 19.2 % (11.5-14.5); White Blood Count 20.4 K/mm3 (4.5-10.0)
[2023-09-08 18:11] LABS: Lactic Acid Reflex 1.7 mmol/L (0.7-2.0)
[2023-09-08 18:13] LABS: Alanine Aminotransferase 222 U/L (6-35); Albumin Level 4.3 g/dL (3.5-5.1); Alkaline Phosphatase 406 U/L (38-126); Anion Gap 13 mmol/L (4-12); Aspartate Amino Transferase 134 U/L (14-36); Blood Urea Nitrogen 9 mg/dL (7-17); Calcium 9.5 mg/dL (8.4-10.2); Carbon Dioxide 18 mmol/L (22-30); Chloride 108 mmol/L (98-107); Estimated CRCL calculation 96 ml/min; Estimated Glomerular Filt Rate > 60; Glucose 86 mg/dL (65-110); Potassium 3.3 mmol/L (3.4-5.0); Sodium 139 mmol/L (137-145)
[2023-09-08 19:36] LABS: Amylase > 2400 U/L (30-110); Lipase > 40000 U/L (23-300)
--- NOTE | 2023-09-08 20:32 | PM.EVENT ---
Event Note Event Note Event Note: 09/08/2019 for approximately 20:00 I was called emergently to the patient's room for current concern of possible absent bowel sounds. The patient was writhing in pain and moaning. Patient had underwent ERCP early this afternoon and shortly after were turned to the medical floor patient was having severe abdominal pain. Gastroenterology ordered a stat CT of the abdomen, repeat white count CMP and lactic acid as well as amylase and lipase. Amylase and lipase were greater than the cutoff for maximum values. The patient's white count had jumped to 20,000. AST and ALT as well as alk-phos him are elevated but are comparable to previous values. Lactic acid was normal. Patient's serum bicarb was slightly low. The patient was actively writhing in bed, had generalized pallor, him was moaning in pain. Patient had faint hypoactive bowel sounds. She had generalized tenderness to palpation abdomen. Abdomen was not tense but was slightly distended. The patient has acute pancreatitis status post ERCP. CT scan demonstrated severe acute interstitial pancreatitis. CT scan personally reviewed. Patient is made NPO. IV fluids were increased 150 mL an hour. Patient's pain medications were switched from morphine to Dilaudid 1 mg q.3 hours. Will add Toradol 30 mg IV q.6 hours scheduled for 24 hours. Will also add Pepcid as GI prophylaxis given Toradol use. I have requested nursing staff call and update the general surgeon as to the change in the patient's condition as it appears that the reason NPO order at midnight and if the patient was supposed to go to have cholecystectomy in the morning have wanted the surgeon to be aware of the patient's change in condition for scheduling purposes. The patient and her were updated at bedside. Examination interview were performed with video interpreting services as the patient is Syriac-speaking only. 35 minute spent in critical care activities. Due to a high probability of clinically significant, life threatening deterioration, the patient required my highest level of preparedness to intervene emergently and I personally spent this critical care time directly and personally managing the patient. This critical care time included obtaining a history; examining the patient; pulse oximetry; ordering and review of studies; arranging urgent treatment with development of a management plan; evaluation of patient's response to treatment; frequent reassessment; and discussions with other providers. It was exclusive of separately billable procedures and treating other patients and teaching time. Please see Assessment and Plan section and the rest of the note for further information on patient assessment and treatment.
[2023-09-08] MEDS: KETOROLAC 30 MG/ML VIAL (*BKC) IV PUSH (21:10)
[2023-09-08] MEDS: FAMOTIDINE 20 MG/2 ML VIAL IV PUSH (21:10)
[2023-09-08] MEDS: PIPERACILLIN/TAZ 4.5G/NS 100ML 4.5 GM/100 ML BAG IVPB (21:10)
--- NOTE | 2023-09-08 21:36 | PC.NURSE ---
At 1940 patient was screaming in pain and tossing and turning in the bed. Patient was inconsolable and guarding her stomach. Sypmptoms began during the day shift following an ERCP procedure. The physician in charge of the procedure Dr. Howell was notified and orders for a STAT CT of the abdomen and lab draws were given. The results of which showed acute intersitial pancreatitis in the CT and an amalyse of greater than 2,400 and a lipase of greater than 40,000. Charge nurse, assisted living housekeeper, and hospitalist were all notified of the patient condition and the new results. The hospitalist Dr. Hooper gave new orders for pain medication and a change in fluid medication. This RN will continue to monitor patient condition this shift.
[2023-09-08] MEDS: POTASSIUM CHLORIDE INJ 40 MEQ in SODIUM CHLORIDE 0.9% IV 500 ML 130 MEQ IVPB (21:56)
[2023-09-08] MEDS: SODIUM CHLORIDE 0.9% IV 1,000 ML 150 ML IV CONT (21:57)
[2023-09-09] VITALS (15 sets, daily range): BP systolic 116–134; BP diastolic 76–87; PULSE 82–172; RESP 14–24; TEMP 36.1–37.1; O2SAT 92–100
[2023-09-09] MEDS: HYDROmorphone HCL INJ (*CRX) 1 MG/ML SYR IV PUSH ×5 (01:04→13:44)
[2023-09-09] MEDS: PIPERACILLIN/TAZ 4.5G/NS 100ML 4.5 GM/100 ML BAG IVPB ×3 (02:35→12:04)
[2023-09-09] MEDS: KETOROLAC 30 MG/ML VIAL (*BKC) IV PUSH ×2 (05:15→12:03)
[2023-09-09 05:43] LABS: Basophils Percent Auto 0.1 % (0.2-1.2); Hematocrit 52.7 % (37.0-47.0); Hemoglobin 16.5 g/dL (12.0-15.0); Immature Granulocyte Absolute 0.04 K/mm3 (0.00-0.031); Immature Granulocyte Percent A 0.5 % (0-0.5); Lymphocytes Absolute Auto 1.02 K/mm3 (0.9-3.2); Lymphocytes Percent Auto 13.1 % (18.3-44.2); Mean Corpuscular HGB Conc 31.3 g/dl (32-36); Mean Corpuscular Hemoglobin 27.4 pg (26-34); Mean Corpuscular Volume 87.4 fl (80-100); Mean Platelet Volume 10.1 fl (7.4-10.4); Monocytes Absolute Auto 0.5 K/mm3 (0.1-0.6); Monocytes Percent Auto 5.9 % (2.6-8.5); Neutrophils Absolute Auto 6.3 K/mm3 (1.3-6.7); Neutrophils Percent Auto 80.4 % (45.5-73.1); Platelet Count Result 364 k/mm3 (150-375); Red Blood Count 6.03 M/mm3 (4.2-5.4); Red Cell Distribution Width 20.7 % (11.5-14.5); White Blood Count 7.8 K/mm3 (4.5-10.0)
[2023-09-09 05:57] LABS: Alanine Aminotransferase 156 U/L (6-35); Albumin Level 3.9 g/dL (3.5-5.1); Alkaline Phosphatase 330 U/L (38-126); Anion Gap 12 mmol/L (4-12); Aspartate Amino Transferase 86 U/L (14-36); Bilirubin,Total 2.7 mg/dL (0.2-1.3); Blood Urea Nitrogen 14 mg/dL (7-17); Calcium 8.5 mg/dL (8.4-10.2); Carbon Dioxide 14 mmol/L (22-30); Chloride 112 mmol/L (98-107); Estimated CRCL calculation 66 ml/min; Estimated Glomerular Filt Rate > 60; Glucose 176 mg/dL (65-110); Sodium 138 mmol/L (137-145)
[2023-09-09 06:30] LABS: Alanine Aminotransferase 149 U/L (6-35); Albumin Level 3.7 g/dL (3.5-5.1); Alkaline Phosphatase 300 U/L (38-126); Anion Gap 13 mmol/L (4-12); Aspartate Amino Transferase 82 U/L (14-36); Bilirubin,Total 2.6 mg/dL (0.2-1.3); Blood Urea Nitrogen 15 mg/dL (7-17); Calcium 8.4 mg/dL (8.4-10.2); Carbon Dioxide 13 mmol/L (22-30); Chloride 112 mmol/L (98-107); Estimated CRCL calculation 73 ml/min; Estimated Glomerular Filt Rate > 60; Glucose 179 mg/dL (65-110); Potassium 5.2 mmol/L (3.4-5.0); Sodium 138 mmol/L (137-145)
[2023-09-09] MEDS: LACTATED RINGERS 1,000 ML 999 ML IV CONT ×2 (07:19→07:22)
--- NOTE | 2023-09-09 07:24 | WPDANLDPN2 ---
Anes-Prog Note L&D Date/Time: 09/09/23 07:24 Neuro status: Neuro function grossly intact. Cardiovascular status: normal Respiratory status: normal Airway patency: baseline Mental status: baseline Post-Op hydration status: normal Vital Signs: Last Vital Signs Temp 37.0 C 09/09/23 04:00 Pulse 82 09/09/23 04:00 Resp 14 09/09/23 04:00 BP 132/86 09/09/23 04:00 Pulse Ox 98 09/09/23 04:00 O2 Del Method Room Air 09/08/23 20:00 Pain score (VAS): 0 I/O: Intake & Output 09/08/23 09/08/23 09/09/23 15:59 23:59 07:59 Intake Total 1150 220 600 Balance 1150 220 600 Post-procedural complaints: none Patient feedback: Patient satisfied with anesthetic care.
[2023-09-09] MEDS: FAMOTIDINE 20 MG/2 ML VIAL IV PUSH ×2 (09:25→20:00)
[2023-09-09] MEDS: SODIUM BICARBONATE 8.4% 150 MEQ in DEXTROSE 5% 1,000 ML 950 ML IV CONT (09:25)
--- NOTE | 2023-09-09 09:27 | PM.IMPN ---
Progress Note: A&P Assessment and Plan (1) Nausea and vomiting in adult: Code(s): R11.2 - Nausea with vomiting, unspecified Status: Acute (2) RUQ pain: Code(s): R10.11 - Right upper quadrant pain Status: Acute (3) Cholelithiasis with choledocholithiasis: Code(s): K80.70 - Calculus of gallbladder and bile duct without cholecystitis without obstruction Status: Acute (4) Common bile duct dilation: Code(s): K83.8 - Other specified diseases of biliary tract Status: Acute (5) Cholelithiasis: Qualifiers: Biliary obstruction: with biliary obstruction Cholecystitis acuity: acute Cholecystitis presence: with cholecystitis Cholelithiasis location: bile duct Qualified Code(s): K80.43 - Calculus of bile duct with acute cholecystitis with obstruction Code(s): K80.20 - Calculus of gallbladder without cholecystitis without obstruction Status: Acute (6) Transaminitis: Code(s): R74.01 - Elevation of levels of liver transaminase levels Status: Acute (7) Acute pancreatitis after endoscopic retrograde cholangiopancreatography (ERCP): Code(s): K91.89 - Other postprocedural complications and disorders of digestive system; K85.90 - Acute pancreatitis without necrosis or infection, unspecified Status: Acute Plan (1) Cholelithiasis: ?Code(s): K80.20 - Calculus of gallbladder without cholecystitis without obstruction ?Status:?Acute ?Assessment and Plan: 09/07/2023: Ultrasound of abdomen showing cholelithiasis with positive sonographic Rich's equivocal for acute cholecystitis, mild dilatation of the common bile duct of 7 mm suggestive of a distal obstructing stone MRCP showing cholelithiasis/choledocholithiasis with mild intra and extra hepatic biliary ductal dilatation General surgery consulted, plans laparoscopic cholecystectomy GI consulted. Continue with pain control Remain NPO, continue IV fluids ERCP was done September 07, pain is improving, gallstone was is tried from biliary duct and pancreatic duct (2) Transaminitis: ?Code(s): R74.01 - Elevation of levels of liver transaminase levels ?Status:?Acute ?Assessment and Plan: 09/07/2023: Total bili 3.7, AST 442, ALT 392, alk-phos 345 Rise in bilirubin and liver enzymes likely due to obstructing stone(3) Common bile duct dilation: ?Code(s): K83.8 - Other specified diseases of biliary tract ?Status:?Acute ?Assessment and Plan: See above plan of care Abnormal discharge from vagina Patient delivered her baby in July Noticed abnormal discharge from vagina today Chronic patient is afebrile, blood pressure stable Consult OBGYN for evaluation and treatment Acute pancreatitis after ERCP 09/07 Keep patient p.o. Optimize pain management Start any medications need Patient is afebrile, blood pressure stable, no O2 desaturation CT abdomen September 07 suggest severe interstitial pancreatitis Follow-up GI recommendation Subjective Date/time seen: 09/09/23 09:27 Interval history: Patient is a Faroese speaker, the conversation is interpreted by Violet Santacruz saw and examined the patient today. Patient underwent ERCP yesterday, patient started have abdomen pain yesterday afternoon, severe associated with nausea denies vomiting. Labs showed elevated lipase and amylase, suggesting acute pancreatitis Exam Narrative: General: In no acute distress, well nourished, Faroese speaking only Head: atraumatic, no encephalopathy Eyes: EOMI, PERRLA, sclera clear ENT: moist mucous membranes, nasal passages clear Neck: supple, no JVD, no adenopathy, trachea midline Cardiac: Normal S1 and S2. RRR, No murmur, gallops or friction rubs, peripheral pulses intact. Respiratory: Lungs clear to auscultation, no adventitious lung sounds Gastrointestinal: soft, non-distended, mid epigastric pain that radiates to her back, normoactive bowel sounds. : voiding
--- NOTE | 2023-09-09 15:06 | WPDGIPROGNO ---
Progress Note: A&P Assessment and Plan (1) Cholelithiasis with choledocholithiasis: Code(s): K80.70 - Calculus of gallbladder and bile duct without cholecystitis without obstruction Status: Acute Assessment and Plan: ercp yesterday, stones removed and pancreatic duct was not even cannulated but still she developed pancreatitis better with dilaudid, agree with surgery to start AUTOMOTIVE CONSULTANT for better pain control ok to have ice chips, c/o dry mouth cholecystectomy with pancreatitis is improved (2) Common bile duct dilation: Code(s): K83.8 - Other specified diseases of biliary tract Status: Acute (3) Transaminitis: Code(s): R74.01 - Elevation of levels of liver transaminase levels Status: Acute Assessment and Plan: monitor worsened after pancreatitis (4) Acute pancreatitis after endoscopic retrograde cholangiopancreatography (ERCP): Code(s): K91.89 - Other postprocedural complications and disorders of digestive system; K85.90 - Acute pancreatitis without necrosis or infection, unspecified Status: Acute (5) Nausea and vomiting in adult: Code(s): R11.2 - Nausea with vomiting, unspecified Status: Acute Subjective Date/time seen: 09/09/23 15:06 Interval history: ercp yesterday, first attempt cannulation bile duct without any problem and was successful then stones removed easily, pancreatic duct was not cannulated and she received indomethacin supp but still unfortunately in the evening developed severe abdominal pain, CT scan and blood work consistent with pancreatitis she is npo now, pain better with iv narcotics Review of Systems Review of Systems: All systems reviewed & are unremarkable except as noted in HPI and below Exam Const: Other: c/o abdominal pain but better after pain meds HENMT: Face/Nose/Sinus: Normal nares present Eyes: General: appearance normal, both eyes and all related structures Neck: Neck: supple Resp: Effort & Inspection: normal respiratory effort Cardio: Rate: regular rate GI: Inspection: distended GI Palp: Yes Tenderness to palpation present (GI) (mild ttp in epigastric, no rebound) Skin: General skin exam: normal color Neuro: Speech: normal speech Motor exam (neuro): 5/5 motor strength present throughout Extrem: General: normal to inspection Psych: Affect: Anxious affect present Objective Data Vital Signs Vital Signs: Vital Signs - 24 hr 09/08/23 17:10 09/08/23 20:00 09/08/23 20:00 Temperature 97.8 F Pulse Rate 96 83 Respiratory Rate 24 H Blood Pressure 130/68 138/87 Pulse Oximetry 100 100 Oxygen Delivery Room Air 09/08/23 23:44 09/09/23 04:00 09/09/23 08:34 Temperature 97.8 F 98.6 F 98.7 F Pulse Rate 86 82 97 Respiratory Rate 16 14 17 Blood Pressure 127/86 132/86 127/76 Pulse Oximetry 96 98 100 Oxygen Delivery 09/09/23 07:41 09/09/23 12:28 Temperature 97.0 F L Pulse Rate 97 Respiratory Rate 16 Blood Pressure 134/80 Pulse Oximetry 99 Oxygen Delivery Room Air Intake/Output Intake/Output: Intake & Output 09/06/23 09/07/23 09/08/23 09/09/23 23:59 23:59 23:59 23:59 Intake Total 1587.5 2570 2800 Output Total 400 Balance 1187.5 2570 2800 Meds/Results Medications: Active Medications Generic Name Dose Route Start Last Admin Trade Name Freq PRN Reason Stop Dose Admin Enoxaparin Sodium 40 mg 09/10/23 09:00 Enoxaparin 40 Mg/0.4 Ml Syringe SUB-Q DAILY DAMON Famotidine 20 mg 09/08/23 21:00 09/09/23 09:25 Famotidine 20 Mg/2 Ml Vial IV PUSH 20 mg Q12HR DAMON Administration Sodium Bicarbonate 150 meq/ 1,100 mls @ 150 mls/hr 09/09/23 08:30 09/09/23 09:25 Dextrose IV CONT 150 mls/hr .Q7H20M DAMON Administration Morphine Sulfate 30 mg in 30 mls @ 1 mls/hr 09/09/23 14:24 Morphine Sulfate Apple Checker IV CONT PRN PRN AUTOMOTIVE CONSULTANT Management Protocol 1 MG/HR Ibuprofen 800 mg in 200 mls @ 400 mls/hr 09/09/23 15:00
--- NOTE | 2023-09-09 15:17 | PM.PNGS ---
Progress Note: A&P Assessment and Plan (1) Cholelithiasis with choledocholithiasis: Code(s): K80.70 - Calculus of gallbladder and bile duct without cholecystitis without obstruction Status: Acute Assessment and Plan: Successful ERCP. Hold off on laparoscopic cholecystectomy until pancreatitis improved. (2) Acute pancreatitis after endoscopic retrograde cholangiopancreatography (ERCP): Code(s): K91.89 - Other postprocedural complications and disorders of digestive system; K85.90 - Acute pancreatitis without necrosis or infection, unspecified Status: Acute Assessment and Plan: Still having a lot of pain. I discussed with Dr. Howell and will go ahead and start her on a HUMAN RESOURCES TRAINER pump. I will discontinue the Zosyn as it does not seem she has cholecystitis and antibiotics are not indicated for acute pancreatitis. Subjective Subjective Date/Time Seen: 09/09/23 15:17 Patient reports: still having pain (Pain medication helping only minimally.), no flatus, no bowel movement, nausea and afebrile Interval history: Audiovisual remote interpretive services used for her evaluation. Review of Systems Review of Systems: All systems reviewed & are unremarkable except as noted in HPI and below (HPI) Exam Const: General: no acute distress, alert, awake, ill appearing, tired appearing, uncomfortable and thin Nutritional Appearance: thin Orientation/consciousness: No confusion GI: Inspection: normal to inspection, no abdominal wall ecchymosis, non-distended and scaphoid GI Palp: Yes abdominal tenderness (Diffusely tenderness with guarding), Yes Soft to palpation and Yes Guarding due to palpation present (GI) Auscultation: absent bowel sounds Skin: Lesions: no lesions Rashes: no rashes Neuro: General: moves all extremities, no focal motor deficits and CN's II-XI intact bilaterally Cranial nerves: Yes CN's II-XII intact bilaterally, Yes Equal, round and reactive pupils present, Yes facial symmetry and Yes Midline tongue present Cognition (Neuro): normal cognition Speech: normal speech Extrem: General: no calf tenderness and no edema Psych: Speech and movement: Clear speech present Affect: Anxious affect present Attitude: cooperative Thought content: Yes Normal thought content present Insight: Good insight present (Psych) Judgement: Good judgement present (Psych) Objective Data Vital Signs Vital Signs: Vital Signs - 24 hr 09/08/23 17:10 09/08/23 20:00 09/08/23 20:00 Temperature 36.6 C Pulse Rate 96 83 Respiratory Rate 24 H Blood Pressure 130/68 138/87 Pulse Oximetry 100 100 Oxygen Delivery Room Air 09/08/23 23:44 09/09/23 04:00 09/09/23 08:34 Temperature 36.6 C 37.0 C 37.1 C Pulse Rate 86 82 97 Respiratory Rate 16 14 17 Blood Pressure 127/86 132/86 127/76 Pulse Oximetry 96 98 100 Oxygen Delivery 09/09/23 07:41 09/09/23 12:28 Temperature 36.1 C L Pulse Rate 97 Respiratory Rate 16 Blood Pressure 134/80 Pulse Oximetry 99 Oxygen Delivery Room Air Intake/Output Intake/Output: Intake & Output 09/06/23 09/07/23 09/08/23 09/09/23 23:59 23:59 23:59 23:59 Intake Total 1587.5 2570 2800 Output Total 400 Balance 1187.5 2570 2800 Meds/Results Medications: Active Medications Generic Name Dose Route Start Last Admin Trade Name Freq PRN Reason Stop Dose Admin Enoxaparin Sodium 40 mg 09/10/23 09:00 Enoxaparin 40 Mg/0.4 Ml Syringe SUB-Q DAILY DAMON Famotidine 20 mg 09/08/23 21:00 09/09/23 09:25 Famotidine 20 Mg/2 Ml Vial IV PUSH 20 mg Q12HR DAMON Administration Sodium Bicarbonate 150 meq/ 1,100 mls @ 150 mls/hr 09/09/23 08:30 09/09/23 09:25 Dextrose IV CONT 150 mls/hr .Q7H20M DAMON Administration Morphine Sulfate 30 mg in 30 mls @ 1 mls/hr 09/09/23 14:24 Morphine Sulfate Ship Rigger Apprentice IV CONT PRN PRN HUMAN RESOURCES TRAINER Management Protocol 1 MG/HR Ibuprofen 800 mg in 200 mls @ 400 mls/hr 09/09/23 15:00 Alex
[2023-09-09] MEDS: MORPHINE SULFATE PCA (*CRX) 30 MG/30 ML SYR IV CONT ×2 (15:37→20:31)
[2023-09-09] MEDS: ENOXAPARIN 40 MG/0.4 ML SYRINGE SUB-Q (16:21)
[2023-09-09] MEDS: IBUPROFEN IV 800 MG/200 ML 800 MG/200 ML BAG 400 MG IVPB ×2 (16:21→20:04)
--- NOTE | 2023-09-09 18:33 | ECG_ITS ---
Measurements Intervals [place] Rate: 146 P: 25 SD: 111 QRS: 60 QRSD: 96 T: 16 QT: 326 QTc: 509 Interpretive Statements SINUS TACHYCARDIA WITH SHORT SD INTERVAL MINIMAL Q WAVES- INFERIOR LEADS NONSPECIFIC T-WAVE ABNORMALITY- DIFFUSE LEADS ABNORMAL ECG NO PREVIOUS ECG AVAILABLE FOR COMPARISON Electronically Signed On 09-09-2023 19:01:45 CDT by Serge Gunn D.O.
--- NOTE | 2023-09-09 19:22 | WPDCN ---
Assessment and Plan Assessment and plan (1) Normal menstrual period: Status: Acute Assessment and Plan: Patient's symptoms are consistent with her resuming her periods . She did not have any concerns. She was informed it may take several months for menstrual cycle to regulate. No further follow up needed by screen cutter and trimmer service. HPI Data of Consult Date/Time: 09/08/23 16:30 Requesting Physician: Tommy Lua MD Primary Care Provider: WALLPAPER CLEANER PHYSICIAN Consult Narrative Reason for consult: Vaginal discharge Narrative: History obtained with assistance of command post superintendent service provided by hospital. Shaylee Andujar is a 23 year old female six weeks admitted for abdominal pain. She states that she has a discharge that is consistent with her a light period. She had light lochia after last child and this is her first period. She denies any abnormal odor or vaginal itching. States the discharge is dark blood. Denies vaginal pain. PMFSH Past Medical History Medical History Cholelithiasis with choledocholithiasis Healthy female adult History of vaginal delivery 07/24/23 Nausea and vomiting in adult RUQ pain Surgical History Surgical History No history of previous surgery Family History Family History Other Family history non-contributory Social History Social History Social History: Surrogate medical decision maker: Michele Krishnan, spouse. Code status: Full code. Smoking status: Never smoker Additional living arrangements comments: Lives with and their 2 children in [place]. 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 Spiritual care concerns: Yes Meds Home Medications and Allergies Home Medications Medication Instructions Recorded Confirmed Type famotidine 20 mg tablet (Pepcid) 20 mg PO HS #14 tabs 09/27/22 09/06/23 Rx Allergies Allergy/AdvReac Type Severity Reaction Status Date / Time No Known Allergies Allergy Verified 09/08/23 11:25 Vital Signs Vital Signs - 24 hr 09/08/23 20:00 09/08/23 20:00 09/08/23 23:44 Temperature 97.8 F 97.8 F Pulse Rate 83 86 Respiratory Rate 24 H 16 Blood Pressure 138/87 127/86 Pulse Oximetry 100 96 Oxygen Delivery Room Air Fraction of Inspired Oxygen 09/09/23 04:00 09/09/23 08:34 09/09/23 07:41 Temperature 98.6 F 98.7 F Pulse Rate 82 97 Respiratory Rate 14 17 Blood Pressure 132/86 127/76 Pulse Oximetry 98 100 Oxygen Delivery Room Air Fraction of Inspired Oxygen 09/09/23 12:28 09/09/23 15:37 09/09/23 16:00 Temperature 97.0 F L 97.8 F Pulse Rate 97 130 H Respiratory Rate 16 24 H 17 Blood Pressure 134/80 116/87 Pulse Oximetry 99 98 99 Oxygen Delivery Fraction of Inspired Oxygen 09/09/23 17:02 09/09/23 17:12 09/09/23 18:14 Temperature 97.9 F 97.7 F Pulse Rate 135 H 134 H 143 H Respiratory Rate 23 H 16 16 Blood Pressure 122/78 123/83 Pulse Oximetry 97 98 98 Oxygen Delivery Room Air Fraction of Inspired Oxygen 21 09/09/23 19:15 Temperature 97.3 F L Pulse Rate 172 H Respiratory Rate 18 Blood Pressure 134/80 Pulse Oximetry 98 Oxygen Delivery Fraction of Inspired Oxygen Results Labs 09/09/23 05:07 09/09/23 06:12 Labs: Short CBC 09/09/23 Range/Units 05:07 WBC 7.8 (4.5-10.0) K/mm3 Hgb 16.5 H (12.0-15.0) g/dL Hct 52.7 H (37.0-47.0) % Plt Count 364 (150-375) k/mm3 BMP 09/09/23 09/09/23 05:07 06:12 Sodium 138 138 Potassium 7.0 H* 5.2 H Chloride 112 H 112 H Carbon Dioxide 14 L 13 L BUN 14 D 15 Creatinine 0.90 0.80 Glucose 176 H 179 H Calcium 8.5 8.4 Liver Function 09/09/23 09/09/23 Range/Units 05:07 06:12 Total Bilirubi
[2023-09-09] MEDS: SODIUM CHLORIDE 0.9% IV 1,000 ML 999 ML IV CONT ×2 (19:59→23:31)
[2023-09-09] MEDS: ONDANSETRON INJ 4 MG/2 ML VIAL IV PUSH (20:13)
[2023-09-09] MEDS: SODIUM CHLORIDE 0.9% IV 1,000 ML 200 ML IV CONT (21:34)
[2023-09-09 22:40] LABS: Basophils Absolute Auto 0.1 K/mm3 (0.0-0.1); Basophils Percent Auto 0.6 % (0.2-1.2); Eosinophils Absolute Auto 0.1 K/mm3 (0-0.3); Eosinophils Percent Auto 0.8 % (0-4.4); Hematocrit 41.2 % (37.0-47.0); Hemoglobin 13.5 g/dL (12.0-15.0); Immature Granulocyte Absolute 0.06 K/mm3 (0.00-0.031); Immature Granulocyte Percent A 0.6 % (0-0.5); Lymphocytes Absolute Auto 1.52 K/mm3 (0.9-3.2); Mean Corpuscular HGB Conc 32.8 g/dl (32-36); Mean Corpuscular Hemoglobin 27.7 pg (26-34); Mean Corpuscular Volume 84.4 fl (80-100); Mean Platelet Volume 9.7 fl (7.4-10.4); Monocytes Absolute Auto 0.7 K/mm3 (0.1-0.6); Neutrophils Absolute Auto 8.5 K/mm3 (1.3-6.7); Platelet Count Result 290 k/mm3 (150-375); Red Blood Count 4.88 M/mm3 (4.2-5.4); Red Cell Distribution Width 20.1 % (11.5-14.5); White Blood Count 10.9 K/mm3 (4.5-10.0)
[2023-09-09 22:53] LABS: Alanine Aminotransferase 92 U/L (6-35); Albumin Level 2.8 g/dL (3.5-5.1); Alkaline Phosphatase 177 U/L (38-126); Anion Gap 5 mmol/L (4-12); Aspartate Amino Transferase 84 U/L (14-36); Bilirubin,Total 1.6 mg/dL (0.2-1.3); Blood Urea Nitrogen 16 mg/dL (7-17); Calcium 6.8 mg/dL (8.4-10.2); Carbon Dioxide 23 mmol/L (22-30); Chloride 107 mmol/L (98-107); Estimated CRCL calculation 73 ml/min; Estimated Glomerular Filt Rate > 60; Glucose 192 mg/dL (65-110); Potassium 3.7 mmol/L (3.4-5.0); Sodium 135 mmol/L (137-145)
[2023-09-09] MEDS: PROMETHAZINE HCL 25 MG/ML AMPUL IM (22:53)
[2023-09-09 22:54] LABS: Lactic Acid Reflex 1.8 mmol/L (0.7-2.0)
[2023-09-10] VITALS (25 sets, daily range): BP systolic 111–123; BP diastolic 58–77; PULSE 88–142; RESP 14–25; TEMP 36.5–37.7; O2SAT 88–100
[2023-09-10] MEDS: IBUPROFEN IV 800 MG/200 ML 800 MG/200 ML BAG 400 MG IVPB ×4 (02:35→23:04)
[2023-09-10] MEDS: SODIUM CHLORIDE 0.9% IV 1,000 ML 200 ML IV CONT ×2 (05:40→12:45)
[2023-09-10 05:55] LABS: Hemoglobin 13.1 g/dL (12.0-15.0); Mean Corpuscular HGB Conc 31.2 g/dl (32-36); Mean Corpuscular Hemoglobin 27.6 pg (26-34); Mean Corpuscular Volume 88.6 fl (80-100); Mean Platelet Volume 10.1 fl (7.4-10.4); Platelet Count Result 287 k/mm3 (150-375); Red Blood Count 4.74 M/mm3 (4.2-5.4); Red Cell Distribution Width 20.5 % (11.5-14.5); White Blood Count 11.1 K/mm3 (4.5-10.0)
[2023-09-10 06:42] LABS: Alanine Aminotransferase 79 U/L (6-35); Albumin Level 2.6 g/dL (3.5-5.1); Alkaline Phosphatase 150 U/L (38-126); Anion Gap 4 mmol/L (4-12); Aspartate Amino Transferase 77 U/L (14-36); Bilirubin,Total 1.4 mg/dL (0.2-1.3); Blood Urea Nitrogen 15 mg/dL (7-17); Calcium 6.1 mg/dL (8.4-10.2); Carbon Dioxide 20 mmol/L (22-30); Chloride 111 mmol/L (98-107); Estimated CRCL calculation 73 ml/min; Estimated Glomerular Filt Rate > 60; Glucose 162 mg/dL (65-110); Potassium 3.6 mmol/L (3.4-5.0); Sodium 135 mmol/L (137-145)
[2023-09-10 06:45] LABS: Band Neutrophils Percent 37 % (0-6); Lymphocytes Absolute Manual 0.99 K/mm3 (1.1-4.5); Lymphocytes Percent Manual 9 % (18-44); Neutrophils Absolute Manual 9.32 K/mm3 (1.7-7.2); Neutrophils Percent Manual 47 % (46-73); Total Cells Counted 100
[2023-09-10 06:46] LABS: Basophils Absolute Manual 0.22 K/mm3 (0.0-0.1); Basophils Percent Manual 2 % (0-1); Monocytes Absolute Manual 0.55 K/mm3 (0.1-0.90); Monocytes Percent Manual 5 % (3-9)
[2023-09-10 06:47] LABS: Platelet Estimate Adequate (Adequate); Schistocytes None Seen
[2023-09-10 07:59] LABS: Lipase 9447 U/L (23-300)
--- NOTE | 2023-09-10 08:00 | PM.IMPN ---
Progress Note: A&P Assessment and Plan (1) Nausea and vomiting in adult: Code(s): R11.2 - Nausea with vomiting, unspecified Status: Acute (2) RUQ pain: Code(s): R10.11 - Right upper quadrant pain Status: Acute (3) Cholelithiasis with choledocholithiasis: Code(s): K80.70 - Calculus of gallbladder and bile duct without cholecystitis without obstruction Status: Acute (4) Common bile duct dilation: Code(s): K83.8 - Other specified diseases of biliary tract Status: Acute (5) Cholelithiasis: Qualifiers: Biliary obstruction: with biliary obstruction Cholecystitis acuity: acute Cholecystitis presence: with cholecystitis Cholelithiasis location: bile duct Qualified Code(s): K80.43 - Calculus of bile duct with acute cholecystitis with obstruction Code(s): K80.20 - Calculus of gallbladder without cholecystitis without obstruction Status: Acute (6) Transaminitis: Code(s): R74.01 - Elevation of levels of liver transaminase levels Status: Acute (7) Acute pancreatitis after endoscopic retrograde cholangiopancreatography (ERCP): Code(s): K91.89 - Other postprocedural complications and disorders of digestive system; K85.90 - Acute pancreatitis without necrosis or infection, unspecified Status: Acute Plan Cholelithiasis: ?Code(s): K80.20 - Calculus of gallbladder without cholecystitis without obstruction ?Status:?Acute ?Assessment and Plan: 09/07/2023: Ultrasound of abdomen showing cholelithiasis with positive sonographic Rich's equivocal for acute cholecystitis, mild dilatation of the common bile duct of 7 mm suggestive of a distal obstructing stone MRCP showing cholelithiasis/choledocholithiasis with mild intra and extra hepatic biliary ductal dilatation General surgery consulted, plans laparoscopic cholecystectomy GI consulted. Continue with pain control Remain NPO, continue IV fluids ERCP was done September 07, , gallstone was extracted from biliary duct and pancreatic duct Acute pancreatitis after ERCP 09/07 Keep patient p.o. Optimize pain management Start any medications need Patient is afebrile, blood pressure stable, no O2 desaturation CT abdomen September 07 suggest severe interstitial pancreatitis Follow-up GI recommendation SIRS vs SEPSIS Patient has tachycardia tachypnea, leukocytosis 11,100 with left shift, f/u CXR, blood culture and procalcitonin level Zosyn was stopped September 08, start cefepime and Flagyl 09/09, deescalate antibiotics once sepsis is ruled out X-ray showed bilateral infiltrates and atelectasis, prominent left lower lobe ? Aspiration pneumonia Patient is on antibiotics Abdomen distension Hypoactive bowel saw Possible ileus Keep patient p.o. Follow KUB s/w reglan iv Transaminitis: ?Code(s): R74.01 - Elevation of levels of liver transaminase levels ?Status:?Acute ?Assessment and Plan: 09/07/2023: Total bili 3.7, AST 442, ALT 392, alk-phos 345 Rise in bilirubin and liver enzymes likely due to obstructing stone now the liver enzymes and total bilirubin are trending down Common bile duct dilation: ?Code(s): K83.8 - Other specified diseases of biliary tract ?Status:?Acute ?Assessment and Plan: See above plan of care Abnormal discharge from vagina Patient delivered her baby in July Noticed abnormal discharge from vagina today Chronic patient is afebrile, blood pressure stable Consult OBGYN for evaluation and treatment Subjective Date/time seen: 09/10/23 08:00 Interval history: The conversation is interpreted by nursing scheduler Maria Del Carmen Patient feels better today regarding the pain, still feeling nauseous. Patient had chest tightness, patient also has abdomen pain, abdomen distension. Patient denies chest pain, cough, headache, focal weakness. Labs reviewed. Patient has leukocytosis, tachycardia tachypnea, pulse ox 90
[2023-09-10] MEDS: CEFEPIME 2 GM/NS 50 ML 2 GM/50 ML BAG IVPB ×3 (08:31→22:26)
[2023-09-10] MEDS: ENOXAPARIN 40 MG/0.4 ML SYRINGE SUB-Q (08:31)
[2023-09-10] MEDS: FAMOTIDINE 20 MG/2 ML VIAL IV PUSH ×2 (08:32→22:33)
[2023-09-10] MEDS: metroNIDAZOLE 500 MG/ISO 100ML 500 MG/100 ML BAG 100 MG IVPB ×2 (09:39→17:17)
[2023-09-10] MEDS: MORPHINE SULFATE PCA (*CRX) 30 MG/30 ML SYR IV CONT ×2 (10:39→23:31)
--- NOTE | 2023-09-10 10:44 | WPDGIPROGNO ---
Progress Note: A&P Assessment and Plan (1) Cholelithiasis with choledocholithiasis: Code(s): K80.70 - Calculus of gallbladder and bile duct without cholecystitis without obstruction Status: Acute Assessment and Plan: ercp with stones removed and pancreatic duct was not even cannulated but still she developed pancreatitis better with LOCKER ROOM MANAGER ok to have ice chips, if better we could try liquid diet tomorrow give miralax cholecystectomy once pancreatitis is improved (2) Common bile duct dilation: Code(s): K83.8 - Other specified diseases of biliary tract Status: Acute Assessment and Plan: treated with ercp (3) Transaminitis: Code(s): R74.01 - Elevation of levels of liver transaminase levels Status: Acute Assessment and Plan: monitor worsened after pancreatitis but trending back down again (4) Acute pancreatitis after endoscopic retrograde cholangiopancreatography (ERCP): Code(s): K91.89 - Other postprocedural complications and disorders of digestive system; K85.90 - Acute pancreatitis without necrosis or infection, unspecified Status: Acute Assessment and Plan: medical support (5) Nausea and vomiting in adult: Code(s): R11.2 - Nausea with vomiting, unspecified Status: Acute Assessment and Plan: better (6) SIRS (systemic inflammatory response syndrome): Code(s): R65.10 - Systemic inflammatory response syndrome (SIRS) of non-infectious origin without acute organ dysfunction Status: Acute Assessment and Plan: this is probably from acute pancreatitis empirically on abx for now Subjective Date/time seen: 09/10/23 10:44 Interval history: still with upper abdominal pain and nausea but more comfortable today, she is on keno writer/runner morphine Review of Systems Review of Systems: All systems reviewed & are unremarkable except as noted in HPI and below Exam Const: Other: c/o abdominal pain but better after pain meds HENMT: Face/Nose/Sinus: Normal nares present Eyes: General: appearance normal, both eyes and all related structures Neck: Neck: supple Resp: Effort & Inspection: normal respiratory effort Cardio: Rate: regular rate GI: Inspection: distended GI Palp: Yes Tenderness to palpation present (GI) (mild ttp in epigastric, no rebound) Skin: General skin exam: normal color Neuro: Speech: normal speech Motor exam (neuro): 5/5 motor strength present throughout Extrem: General: normal to inspection Psych: Affect: Anxious affect present Objective Data Vital Signs Vital Signs: Vital Signs - 24 hr 09/09/23 12:28 09/09/23 15:37 09/09/23 16:00 Temperature 97.0 F L 97.8 F Pulse Rate 97 130 H Respiratory Rate 16 24 H 17 Blood Pressure 134/80 116/87 Pulse Oximetry 99 98 99 Oxygen Delivery Oxygen Flow Rate Fraction of Inspired Oxygen 09/09/23 17:02 09/09/23 17:12 09/09/23 18:14 Temperature 97.9 F 97.7 F Pulse Rate 135 H 134 H 143 H Respiratory Rate 23 H 16 16 Blood Pressure 122/78 123/83 Pulse Oximetry 97 98 98 Oxygen Delivery Room Air Oxygen Flow Rate Fraction of Inspired Oxygen 21 09/09/23 19:15 09/09/23 16:00 09/09/23 17:00 Temperature 97.3 F L Pulse Rate 172 H Respiratory Rate 18 18 17 Blood Pressure 134/80 Pulse Oximetry 98 100 98 Oxygen Delivery Oxygen Flow Rate Fraction of Inspired Oxygen 09/09/23 18:00 09/09/23 20:05 09/09/23 20:05 Temperature 97.8 F Pulse Rate 133 H Respiratory Rate 18 20 20 Blood Pressure 121/81 Pulse Oximetry 100 92 94 Oxygen Delivery Oxygen Flow Rate Fraction of Inspired Oxygen 09/09/23 20:00 09/09/23 21:57 09/09/23 22:30 Temperature Pulse Rate 133 H Respiratory Rate 18 20 Blood Pressure Pulse Oximetry 92 94 Oxygen Delivery Room Air Oxygen Flow Rate Fraction of Inspired Oxygen 09/09/23 23:54 09/10/23 01:56 09/10/23 00:30 Temperature 97.4 F L Pulse Rate
[2023-09-10 11:22] LABS: Procalcitonin 0.3 ng/mL
--- NOTE | 2023-09-10 14:06 | PM.PNGS ---
Progress Note: A&P Assessment and Plan (1) Acute pancreatitis after endoscopic retrograde cholangiopancreatography (ERCP): Code(s): K91.89 - Other postprocedural complications and disorders of digestive system; K85.90 - Acute pancreatitis without necrosis or infection, unspecified Status: Acute Assessment and Plan: Pain under better control with NEUROSURGERY SPINE PHYSICIAN. Patient admits to being somewhat groggy, almost certainly due to NEUROSURGERY SPINE PHYSICIAN dose. Will decrease the bolus dose to 1 mg. She remains very tachycardic but kidney function is good. She received lot of saline with a bolus last night and 200 cc an hour all night. Not surprisingly, she is edematous and explained that this is due to severe pancreatitis and sequestration of fluids. Keep NPO for now, possibly start liquids tomorrow if continues to improve. I stopped antibiotics yesterday as they have no role in pancreatitis unless abscess or infected pancreatic necrosis neither of which have been present. (2) Cholelithiasis with choledocholithiasis: Code(s): K80.70 - Calculus of gallbladder and bile duct without cholecystitis without obstruction Status: Acute Assessment and Plan: Plan to proceed with cholecystectomy once acute pancreatitis has subsided. Recheck lipase tomorrow. If remains elevated will recheck CT scan. Subjective Subjective Date/Time Seen: 09/10/23 14:06 Patient reports: feels better, pain is less, no bowel movement and afebrile Interval history: Patient evaluated with the assistance of audiovisual vision specialist Review of Systems Review of Systems: All systems reviewed & are unremarkable except as noted in HPI and below (HPI) Exam Const: General: cooperative, comfortable, no acute distress, awake, tired appearing and thin Orientation/consciousness: patient oriented x3 and No confusion Resp: Effort & Inspection: normal respiratory effort Auscultation: clear to auscultation bilaterally, no rales, no rhonchi and no wheezes Cardio: Rate: tachycardic Heart sounds: no gallops, no murmurs and no rubs GI: Inspection: Abdominal wall edema and distended GI Palp: Yes Soft to palpation, Yes Tenderness to palpation present (GI) (Upper abdomen only) and Yes Guarding due to palpation present (GI) Auscultation: normal bowel sounds Psych: Affect: normal affect Attitude: cooperative Thought process: Normal thought process present Thought content: Yes Normal thought content present Objective Data Vital Signs Vital Signs: Vital Signs - 24 hr 09/09/23 15:37 09/09/23 16:00 09/09/23 17:02 Temperature 36.6 C Pulse Rate 130 H 135 H Respiratory Rate 24 H 17 23 H Blood Pressure 116/87 Pulse Oximetry 98 99 97 Oxygen Delivery Room Air Oxygen Flow Rate Fraction of Inspired Oxygen 21 09/09/23 17:12 09/09/23 18:14 09/09/23 19:15 Temperature 36.6 C 36.5 C 36.3 C L Pulse Rate 134 H 143 H 172 H Respiratory Rate 16 16 18 Blood Pressure 122/78 123/83 134/80 Pulse Oximetry 98 98 98 Oxygen Delivery Oxygen Flow Rate Fraction of Inspired Oxygen 09/09/23 16:00 09/09/23 17:00 09/09/23 18:00 Temperature Pulse Rate Respiratory Rate 18 17 18 Blood Pressure Pulse Oximetry 100 98 100 Oxygen Delivery Oxygen Flow Rate Fraction of Inspired Oxygen 09/09/23 20:05 09/09/23 20:05 09/09/23 20:00 Temperature 36.6 C Pulse Rate 133 H Respiratory Rate 20 20 Blood Pressure 121/81 Pulse Oximetry 92 94 Oxygen Delivery Room Air Oxygen Flow Rate Fraction of Inspired Oxygen 09/09/23 21:57 09/09/23 22:30 09/09/23 23:54 Temperature 36.3 C L Pulse Rate 133 H 124 H Respiratory Rate 18 20 18 Blood Pressure 129/79 Pulse Oximetry 92 94 92 Oxygen Delivery Oxygen Flow Rate Fraction of Inspired Oxygen 09/10/23 01:56 09/10/23 00:30 09/10/23 02:12 Temperature Pulse Rate 139 H Respiratory Rate 20 18 18 Blood Pressure Pulse Oximetry 92 92 92 Oxygen Delivery Oxygen Flow Rate
[2023-09-10] MEDS: KCL 20 MEQ/D5/0.9% SOD CHL 1,000 ML 125 ML IV CONT (14:43)
[2023-09-10] MEDS: METOCLOPRAMIDE HCL INJ 10 MG/2 ML VIAL IV PUSH ×2 (18:26→23:09)
--- NOTE | 2023-09-10 19:45 | PC.NURSE ---
has been assisting patient with bedpan without notifying staff. Unable to get accurate urine output today. Patient and family educated on importance of letting us know when patient needs to use the restroom.
[2023-09-11] VITALS (13 sets, daily range): BP systolic 98–119; BP diastolic 62–67; PULSE 100–145; RESP 14–20; TEMP 36.4–36.8; O2SAT 95–100
[2023-09-11] MEDS: metroNIDAZOLE 500 MG/ISO 100ML 500 MG/100 ML BAG 100 MG IVPB ×3 (00:56→17:44)
[2023-09-11] MEDS: KCL 20 MEQ/D5/0.9% SOD CHL 1,000 ML 125 ML IV CONT ×3 (01:03→22:00)
[2023-09-11] MEDS: ONDANSETRON INJ 4 MG/2 ML VIAL IV PUSH (03:20)
[2023-09-11] MEDS: CEFEPIME 2 GM/NS 50 ML 2 GM/50 ML BAG IVPB ×3 (05:21→22:25)
[2023-09-11] MEDS: METOCLOPRAMIDE HCL INJ 10 MG/2 ML VIAL IV PUSH ×3 (05:26→17:44)
[2023-09-11 05:53] LABS: Hematocrit 33.4 % (37.0-47.0); Hemoglobin 10.2 g/dL (12.0-15.0); Mean Corpuscular HGB Conc 30.5 g/dl (32-36); Mean Corpuscular Hemoglobin 27.8 pg (26-34); Mean Platelet Volume 10.5 fl (7.4-10.4); Platelet Count Result 215 k/mm3 (150-375); Red Blood Count 3.67 M/mm3 (4.2-5.4); Red Cell Distribution Width 20.8 % (11.5-14.5); White Blood Count 9.7 K/mm3 (4.5-10.0)
[2023-09-11] MEDS: IBUPROFEN IV 800 MG/200 ML 800 MG/200 ML BAG 400 MG IVPB ×3 (06:09→19:55)
[2023-09-11] MEDS: PROMETHAZINE HCL 25 MG/ML AMPUL IM (06:10)
[2023-09-11 06:31] LABS: Alanine Aminotransferase 58 U/L (6-35); Albumin Level 2.5 g/dL (3.5-5.1); Alkaline Phosphatase 95 U/L (38-126); Anion Gap 2 mmol/L (4-12); Aspartate Amino Transferase 73 U/L (14-36); Bilirubin,Total 1.1 mg/dL (0.2-1.3); Blood Urea Nitrogen 9 mg/dL (7-17); Calcium 6.2 mg/dL (8.4-10.2); Carbon Dioxide 21 mmol/L (22-30); Chloride 116 mmol/L (98-107); Estimated CRCL calculation 73 ml/min; Estimated Glomerular Filt Rate > 60; Glucose 191 mg/dL (65-110); Potassium 3.4 mmol/L (3.4-5.0); Sodium 139 mmol/L (137-145)
[2023-09-11 06:39] LABS: Lipase 6008 U/L (23-300)
[2023-09-11 07:06] LABS: Procalcitonin 0.2 ng/mL
--- NOTE | 2023-09-11 08:38 | PM.IMPN ---
Progress Note: A&P Assessment and Plan (1) Nausea and vomiting in adult: Code(s): R11.2 - Nausea with vomiting, unspecified Status: Acute (2) RUQ pain: Code(s): R10.11 - Right upper quadrant pain Status: Acute (3) Cholelithiasis with choledocholithiasis: Code(s): K80.70 - Calculus of gallbladder and bile duct without cholecystitis without obstruction Status: Acute (4) Common bile duct dilation: Code(s): K83.8 - Other specified diseases of biliary tract Status: Acute (5) Cholelithiasis: Qualifiers: Biliary obstruction: with biliary obstruction Cholecystitis acuity: acute Cholecystitis presence: with cholecystitis Cholelithiasis location: bile duct Qualified Code(s): K80.43 - Calculus of bile duct with acute cholecystitis with obstruction Code(s): K80.20 - Calculus of gallbladder without cholecystitis without obstruction Status: Acute (6) Transaminitis: Code(s): R74.01 - Elevation of levels of liver transaminase levels Status: Acute (7) Acute pancreatitis after endoscopic retrograde cholangiopancreatography (ERCP): Code(s): K91.89 - Other postprocedural complications and disorders of digestive system; K85.90 - Acute pancreatitis without necrosis or infection, unspecified Status: Acute Plan Cholelithiasis: ?Code(s): K80.20 - Calculus of gallbladder without cholecystitis without obstruction ?Status:?Acute ?Assessment and Plan: 09/07/2023: Ultrasound of abdomen showing cholelithiasis with positive sonographic Rich's equivocal for acute cholecystitis, mild dilatation of the common bile duct of 7 mm suggestive of a distal obstructing stone MRCP showing cholelithiasis/choledocholithiasis with mild intra and extra hepatic biliary ductal dilatation General surgery consulted, plans laparoscopic cholecystectomy GI consulted. Continue with pain control Remain NPO, continue IV fluids ERCP was done September 07, , gallstone was extracted from biliary duct and pancreatic duct Acute pancreatitis after ERCP 09/07 Keep patient p.o. Optimize pain management Start any medications need Patient is afebrile, blood pressure stable, no O2 desaturation CT abdomen September 07 suggest severe interstitial pancreatitis Follow-up GI recommendation SIRS vs SEPSIS Patient has tachycardia tachypnea, leukocytosis 11,100 with left shift, f/u CXR, blood culture and procalcitonin level Zosyn was stopped September 08, start cefepime and Flagyl 09/09, deescalate antibiotics once sepsis is ruled out 09/10: afeb BP stable and procalcitonin 0.2, wbc wnl, possible sirs, will dc abx if BCX negative X-ray showed bilateral infiltrates and atelectasis, prominent left lower lobe ? Aspiration pneumonia Patient is on antibiotics Abdomen distension Hypoactive bowel sound Keep patient p.o. Follow KUB, no obstruction c/w Reglan iv Transaminitis: ?Code(s): R74.01 - Elevation of levels of liver transaminase levels ?Status:?Acute ?Assessment and Plan: 09/07/2023: Total bili 3.7, AST 442, ALT 392, alk-phos 345 Rise in bilirubin and liver enzymes likely due to obstructing stone now the liver enzymes and total bilirubin are trending down Common bile duct dilation: ?Code(s): K83.8 - Other specified diseases of biliary tract ?Status:?Acute ?Assessment and Plan: See above plan of care Abnormal discharge from vagina Patient delivered her baby in July Noticed abnormal discharge from vagina today Chronic patient is afebrile, blood pressure stable Consult OBGYN for evaluation and treatment Subjective Date/time seen: 09/11/23 08:38 Interval history: The conversation is interpreted by diplomatic interpreter Patient feels better today. Abdomen pain is better controlled, denies nausea vomiting today. Patient denies chest pain, cough, headache, focal weakness. Labs reviewed. Patient is afebrile, lizzy
[2023-09-11] MEDS: ENOXAPARIN 40 MG/0.4 ML SYRINGE SUB-Q (08:57)
[2023-09-11] MEDS: FAMOTIDINE 20 MG/2 ML VIAL IV PUSH (08:57)
[2023-09-11] MEDS: MORPHINE SULFATE PCA (*CRX) 30 MG/30 ML SYR IV CONT (13:04)
--- NOTE | 2023-09-11 13:54 | WPDGIPROGNO ---
Progress Note: A&P Assessment and Plan (1) Cholelithiasis with choledocholithiasis: Code(s): K80.70 - Calculus of gallbladder and bile duct without cholecystitis without obstruction Status: Acute Assessment and Plan: ercp with stones removed and pancreatic duct was not even cannulated but still she developed pancreatitis better with PHP WEBSITE DEVELOPER ok to advance to liquid diet, bilirubin back down to normal, clinically better cholecystectomy once pancreatitis is improved (2) Common bile duct dilation: Code(s): K83.8 - Other specified diseases of biliary tract Status: Acute Assessment and Plan: treated with ercp (3) Transaminitis: Code(s): R74.01 - Elevation of levels of liver transaminase levels Status: Acute Assessment and Plan: monitor worsened after pancreatitis but trending back down again (4) Acute pancreatitis after endoscopic retrograde cholangiopancreatography (ERCP): Code(s): K91.89 - Other postprocedural complications and disorders of digestive system; K85.90 - Acute pancreatitis without necrosis or infection, unspecified Status: Acute Assessment and Plan: medical support, she is feeling better (5) Nausea and vomiting in adult: Code(s): R11.2 - Nausea with vomiting, unspecified Status: Acute Assessment and Plan: advance to liquid diet (6) SIRS (systemic inflammatory response syndrome): Code(s): R65.10 - Systemic inflammatory response syndrome (SIRS) of non-infectious origin without acute organ dysfunction Status: Acute Assessment and Plan: this is probably from acute pancreatitis empirically on abx for now but discontinue if culture negative Subjective Date/time seen: 09/11/23 13:54 Interval history: feeling much better, still pain but improved, no BM yet Review of Systems Review of Systems: All systems reviewed & are unremarkable except as noted in HPI and below Exam Const: General: cooperative, comfortable, no acute distress, awake, tired appearing and thin Orientation/consciousness: patient oriented x3 and No confusion HENMT: Face/Nose/Sinus: Normal nares present Eyes: General: appearance normal, both eyes and all related structures Neck: Neck: supple Resp: Effort & Inspection: normal respiratory effort Auscultation: clear to auscultation bilaterally, no rales, no rhonchi and no wheezes Cardio: Rate: regular rate Heart sounds: no murmurs GI: Inspection: Abdominal wall edema and distended GI Palp: Yes Soft to palpation, Yes Tenderness to palpation present (GI) (less tender, no rebung) and Yes Guarding due to palpation present (GI) Auscultation: normal bowel sounds Skin: General skin exam: normal color Neuro: Speech: normal speech Motor exam (neuro): 5/5 motor strength present throughout Extrem: General: normal to inspection Psych: Affect: normal affect Attitude: cooperative Thought process: Normal thought process present Thought content: Yes Normal thought content present Objective Data Vital Signs Vital Signs: Vital Signs - 24 hr 09/10/23 14:45 09/10/23 14:46 09/10/23 16:00 Temperature 97.9 F Pulse Rate 130 H 133 H Respiratory Rate 15 16 Blood Pressure 117/66 Pulse Oximetry 99 100 Oxygen Delivery Oxygen Flow Rate 09/10/23 18:42 09/10/23 18:50 09/10/23 19:58 Temperature 99.8 F H 98.0 F Pulse Rate 130 H 117 H Respiratory Rate 16 14 18 Blood Pressure 115/71 112/62 Pulse Oximetry 98 99 99 Oxygen Delivery Oxygen Flow Rate 09/10/23 20:03 09/10/23 20:20 09/10/23 23:31 Temperature 97.7 F Pulse Rate 88 114 H Respiratory Rate 16 14 16 Blood Pressure 115/58 L Pulse Oximetry 100 98 97 Oxygen Delivery Nasal Cannula Oxygen Flow Rate 2 09/10/23 20:00 09/11/23 00:00 09/11/23 02:23 Temperature Pulse Rate 118 H 145 H Respiratory Rate 14 Blood Pressure Pulse Oximetry 98 Oxygen Delivery Oxygen Flow Rate 09/10
--- NOTE | 2023-09-11 14:17 | PM.PNGS ---
Progress Note: A&P Assessment and Plan (1) Cholelithiasis with choledocholithiasis: Code(s): K80.70 - Calculus of gallbladder and bile duct without cholecystitis without obstruction Status: Acute Assessment and Plan: Will eventually need cholecystectomy once pancreatitis has resolved. (2) Acute pancreatitis after endoscopic retrograde cholangiopancreatography (ERCP): Code(s): K91.89 - Other postprocedural complications and disorders of digestive system; K85.90 - Acute pancreatitis without necrosis or infection, unspecified Status: Acute Assessment and Plan: Continuing to improve. cell tender but good bowel sounds, hungry. Lipase and LFT's both falling. Agree with clear liquids. Will cut back on intravenous fluids. Discontinue LICENSED LOAN OFFICER and oxygen. Up more. Subjective Subjective Date/Time Seen: 09/11/23 14:17 Patient reports: feels better, pain is less, no bowel movement, afebrile and other (very hungry) Interval history: Using LICENSED LOAN OFFICER infrequently, would be ok with discontinuing it. Audiovisual rn relief charge service used. Review of Systems Review of Systems: All systems reviewed & are unremarkable except as noted in HPI and below (HPI) Exam Narrative: tachycardia improved--was 130's, today about 110/min Const: General: comfortable, no acute distress and edematous Orientation/consciousness: patient oriented x3 Resp: Effort & Inspection: normal respiratory effort Auscultation: clear to auscultation bilaterally Cardio: Jugular venous distension: no JVD Rate: tachycardic Rhythm: regular rhythm Heart sounds: no murmurs and no rubs GI: Inspection: Abdominal wall edema and non-distended GI Palp: Yes Soft to palpation, Yes Tenderness to palpation present (GI) (upper abdomen, less than yesterday), Yes Guarding due to palpation present (GI) and No Rebound tenderness present Auscultation: normal bowel sounds Extrem: General: no calf tenderness and no edema Psych: Affect: normal affect Insight: Good insight present (Psych) Judgement: Good judgement present (Psych) Objective Data Vital Signs Vital Signs: Vital Signs - 24 hr 09/10/23 14:45 09/10/23 14:46 09/10/23 16:00 Temperature 36.6 C Pulse Rate 130 H 133 H Respiratory Rate 15 16 Blood Pressure 117/66 Pulse Oximetry 99 100 Oxygen Delivery Oxygen Flow Rate 09/10/23 18:42 09/10/23 18:50 09/10/23 19:58 Temperature 37.7 C H 36.7 C Pulse Rate 130 H 117 H Respiratory Rate 16 14 18 Blood Pressure 115/71 112/62 Pulse Oximetry 98 99 99 Oxygen Delivery Oxygen Flow Rate 09/10/23 20:03 09/10/23 20:20 09/10/23 23:31 Temperature 36.5 C Pulse Rate 88 114 H Respiratory Rate 16 14 16 Blood Pressure 115/58 L Pulse Oximetry 100 98 97 Oxygen Delivery Nasal Cannula Oxygen Flow Rate 2 09/10/23 20:00 09/11/23 00:00 09/11/23 02:23 Temperature Pulse Rate 118 H 145 H Respiratory Rate 14 Blood Pressure Pulse Oximetry 98 Oxygen Delivery Oxygen Flow Rate 09/11/23 04:00 09/11/23 06:53 09/11/23 08:03 Temperature 36.4 C Pulse Rate 109 H 100 Respiratory Rate 16 Blood Pressure 114/66 Pulse Oximetry 98 98 Oxygen Delivery Nasal Cannula Oxygen Flow Rate 2 09/11/23 07:40 09/11/23 08:53 09/11/23 08:53 Temperature 36.8 C Pulse Rate 105 H Respiratory Rate 16 17 Blood Pressure 119/64 Pulse Oximetry 100 98 98 Oxygen Delivery Nasal Cannula Oxygen Flow Rate 1 09/11/23 08:00 09/11/23 12:00 09/11/23 12:22 Temperature 36.8 C Pulse Rate 102 H 116 H 113 H Respiratory Rate 18 Blood Pressure 105/62 Pulse Oximetry 100 Oxygen Delivery Oxygen Flow Rate 09/11/23 13:04 09/11/23 13:04 Temperature Pulse Rate Respiratory Rate 17 17 Blood Pressure Pulse Oximetry 98 98 Oxygen Delivery Oxygen Flow Rate Intake/Output Intake/Output: Intake & Output 09/08/23 09/09/23 09/10/23 09/11/23 23:59 23:59 23:59 23:59 Intake Total 2
[2023-09-11] MEDS: oxyCODONE/ACETAMINOPHEN (*CRX) 5-325 MG TABLET 1 TABLET PO ×2 (17:43→22:24)
[2023-09-11] MEDS: FAMOTIDINE 20 MG TABLET PO (22:24)
[2023-09-12] VITALS (7 sets, daily range): BP systolic 114–120; BP diastolic 65–84; PULSE 100–125; RESP 16–20; TEMP 36.4–38.6; O2SAT 95–96
[2023-09-12] MEDS: METOCLOPRAMIDE HCL INJ 10 MG/2 ML VIAL IV PUSH ×2 (00:58→05:13)
[2023-09-12] MEDS: metroNIDAZOLE 500 MG/ISO 100ML 500 MG/100 ML BAG 100 MG IVPB ×2 (01:04→08:36)
[2023-09-12] MEDS: oxyCODONE/ACETAMINOPHEN (*CRX) 5-325 MG TABLET 1 TABLET PO ×3 (05:08→12:30)
[2023-09-12] MEDS: CEFEPIME 2 GM/NS 50 ML 2 GM/50 ML BAG IVPB (05:16)
[2023-09-12 05:43] LABS: Hematocrit 27.2 % (37.0-47.0); Hemoglobin 8.6 g/dL (12.0-15.0); Mean Corpuscular HGB Conc 31.6 g/dl (32-36); Mean Corpuscular Volume 88.6 fl (80-100); Platelet Count Result 240 k/mm3 (150-375); Red Blood Count 3.07 M/mm3 (4.2-5.4); Red Cell Distribution Width 20.7 % (11.5-14.5); White Blood Count 9.2 K/mm3 (4.5-10.0)
[2023-09-12 05:54] LABS: Alanine Aminotransferase 50 U/L (6-35); Albumin Level 2.5 g/dL (3.5-5.1); Alkaline Phosphatase 100 U/L (38-126); Anion Gap 3 mmol/L (4-12); Aspartate Amino Transferase 53 U/L (14-36); Blood Urea Nitrogen 4 mg/dL (7-17); Calcium 6.7 mg/dL (8.4-10.2); Carbon Dioxide 23 mmol/L (22-30); Chloride 114 mmol/L (98-107); Estimated CRCL calculation 96 ml/min; Estimated Glomerular Filt Rate > 60; Glucose 128 mg/dL (65-110); Lipase 1743 U/L (23-300); Potassium 2.8 mmol/L (3.4-5.0); Sodium 140 mmol/L (137-145)
[2023-09-12] MEDS: MORPHINE SULFATE (*CRX) 2 MG/ML INJ IV PUSH ×4 (05:57→20:43)
[2023-09-12 06:14] LABS: Procalcitonin 0.2 ng/mL
[2023-09-12] MEDS: ONDANSETRON INJ 4 MG/2 ML VIAL IV PUSH ×3 (06:30→18:28)
[2023-09-12] MEDS: POTASSIUM CHLORIDE 20 MEQ PACKET (FOR LIQUID) 40 MEQ PO ×4 (06:58→16:31)
--- NOTE | 2023-09-12 08:34 | PM.IMPN ---
Progress Note: A&P Assessment and Plan (1) Nausea and vomiting in adult: Code(s): R11.2 - Nausea with vomiting, unspecified Status: Deleted (2) RUQ pain: Code(s): R10.11 - Right upper quadrant pain Status: Deleted (3) Cholelithiasis with choledocholithiasis: Code(s): K80.70 - Calculus of gallbladder and bile duct without cholecystitis without obstruction Status: Acute (4) Common bile duct dilation: Code(s): K83.8 - Other specified diseases of biliary tract Status: Deleted (5) Cholelithiasis: Qualifiers: Biliary obstruction: with biliary obstruction Cholecystitis acuity: acute Cholecystitis presence: with cholecystitis Cholelithiasis location: bile duct Qualified Code(s): K80.43 - Calculus of bile duct with acute cholecystitis with obstruction Code(s): K80.20 - Calculus of gallbladder without cholecystitis without obstruction Status: Deleted (6) Transaminitis: Code(s): R74.01 - Elevation of levels of liver transaminase levels Status: Acute (7) Acute pancreatitis after endoscopic retrograde cholangiopancreatography (ERCP): Code(s): K91.89 - Other postprocedural complications and disorders of digestive system; K85.90 - Acute pancreatitis without necrosis or infection, unspecified Status: Acute Plan Cholelithiasis: ?Code(s): K80.20 - Calculus of gallbladder without cholecystitis without obstruction ?Status:?Acute ?Assessment and Plan: 09/07/2023: Ultrasound of abdomen showing cholelithiasis with positive sonographic Rich's equivocal for acute cholecystitis, mild dilatation of the common bile duct of 7 mm suggestive of a distal obstructing stone MRCP showing cholelithiasis/choledocholithiasis with mild intra and extra hepatic biliary ductal dilatation General surgery consulted, plans laparoscopic cholecystectomy GI consulted. Continue with pain control Remain NPO, continue IV fluids ERCP was done September 07, , gallstone was extracted from biliary duct and pancreatic duct Acute pancreatitis after ERCP 09/07 Keep patient p.o. 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 p.o. f/u mg and phos SIRS vs SEPSIS Patient has tachycardia tachypnea, leukocytosis 11,100 with left shift, f/u CXR, blood culture and procalcitonin level Zosyn was stopped September 08, start cefepime and Flagyl 09/09, deescalate antibiotics once sepsis is ruled out 09/10: afeb BP stable and procalcitonin 0.2, wbc wnl, possible sirs, will dc abx if BCX negative X-ray showed bilateral infiltrates and atelectasis, prominent left lower lobe ? Aspiration pneumonia Patient is on antibiotics 09/11: dc abx, possible SIRS, BCX no growth Abdomen distension Follow KUB, no obstruction c/w Reglan iv imprpoves Transaminitis: ?Code(s): R74.01 - Elevation of levels of liver transaminase levels ?Status:?Acute ?Assessment and Plan: 09/07/2023: Total bili 3.7, AST 442, ALT 392, alk-phos 345 Rise in bilirubin and liver enzymes likely due to obstructing stone now the liver enzymes and total bilirubin are trending down Common bile duct dilation: ?Code(s): K83.8 - Other specified diseases of biliary tract ?Status:?Acute ?Assessment and Plan: See above plan of care Abnormal discharge from vagina Patient delivered her baby in July Noticed abnormal discharge from vagina today Chronic patient is afebrile, blood pressure stable Consult OBGYN for evaluation and treatment Subjective Date/time seen: 09/12/23 08:34 Interval history: The conversation is interpreted by site interpreter Patient feels better today. Patient tolerated clear
[2023-09-12] MEDS: polyethylene glycoL 3350 17 GM POWD.PACK PO (08:36)
[2023-09-12] MEDS: ENOXAPARIN 40 MG/0.4 ML SYRINGE SUB-Q (08:36)
[2023-09-12] MEDS: FAMOTIDINE 20 MG TABLET PO ×2 (08:43→22:12)
[2023-09-12 09:57] LABS: Magnesium 1.7 mg/dL (1.6-2.3); Phosphorus 1.6 mg/dL (2.5-4.5)
--- NOTE | 2023-09-12 11:15 | PM.PNGS ---
Progress Note: A&P Assessment and Plan (1) Cholelithiasis with choledocholithiasis: Code(s): K80.70 - Calculus of gallbladder and bile duct without cholecystitis without obstruction Status: Acute Assessment and Plan: Pancreatitis now resolving. Will plan for laparoscopic cholecystectomy tomorrow if continuing to do well. I have discussed the procedure, risks, benefits, and alternatives. Questions answered. (2) Acute pancreatitis after endoscopic retrograde cholangiopancreatography (ERCP): Code(s): K91.89 - Other postprocedural complications and disorders of digestive system; K85.90 - Acute pancreatitis without necrosis or infection, unspecified Status: Acute (3) Hypokalemia: Code(s): E87.6 - Hypokalemia Status: Acute Assessment and Plan: Will recheck this afternoon. Will proceed with surgery tomorrow as long as potassium levels improve. Subjective Subjective Date/Time Seen: 09/12/23 11:15 Interval history: Patient now having improved abdominal pain. Tolerating clears. Exam GI: Inspection: non-distended GI Palp: Yes Soft to palpation and Yes Tenderness to palpation present (GI) (mild epigastric) Auscultation: normal bowel sounds Objective Data Vital Signs Vital Signs: Vital Signs - 24 hr 09/11/23 12:00 09/11/23 12:22 09/11/23 13:04 Temperature 36.8 C Pulse Rate 116 H 113 H Respiratory Rate 18 17 Blood Pressure 105/62 Pulse Oximetry 100 98 Oxygen Delivery 09/11/23 13:04 09/11/23 15:35 09/11/23 21:18 Temperature 36.8 C 36.8 C Pulse Rate 111 H 110 H Respiratory Rate 17 20 16 Blood Pressure 98/67 L 112/67 Pulse Oximetry 98 96 95 Oxygen Delivery 09/12/23 05:05 09/12/23 08:00 09/12/23 08:00 Temperature 36.6 C 36.5 C Pulse Rate 109 H 100 Respiratory Rate 16 17 Blood Pressure 116/80 118/76 Pulse Oximetry 96 96 96 Oxygen Delivery Room Air 09/12/23 09:00 Temperature Pulse Rate Respiratory Rate Blood Pressure Pulse Oximetry 96 Oxygen Delivery Room Air Intake/Output Intake/Output: Intake & Output 09/09/23 09/10/23 09/11/23 09/12/23 23:59 23:59 23:59 23:59 Intake Total 5030 4270 4080 790 Output Total 1150 900 Balance 5030 3120 3180 790 Meds/Results Medications: Active Medications Generic Name Dose Route Start Last Admin Trade Name Freq PRN Reason Stop Dose Admin Acetaminophen 500 mg 09/11/23 14:14 Acetaminophen 500 Mg Tablet PO Q6H PRN Mild Pain (1-3) or Fever Enoxaparin Sodium 40 mg 09/10/23 09:00 09/12/23 08:36 Enoxaparin 40 Mg/0.4 Ml Syringe SUB-Q 40 mg DAILY DAMON Administration Famotidine 20 mg 09/11/23 21:00 09/12/23 08:43 Famotidine 20 Mg Tablet PO 20 mg Q12HR DAMON Administration Metronidazole 500 mg in 100 mls @ 100 mls/hr 09/10/23 09:00 09/12/23 09:36 Flagyl 500 Mg/Iso Soln 100 Ml IVPB Infused Q8H DAMON Infusion Potassium Chloride/Dextrose/Sod Cl 1,000 mls @ 100 mls/hr 09/10/23 14:05 09/11/23 22:00 Kcl 20 Meq/D5/0.9% Sod Chl IV CONT 100 mls/hr .Q10H DAMON Infusion Ibuprofen 800 mg in 200 mls @ 400 mls/hr 09/11/23 14:14 09/11/23 20:29 Caldolor 800 Mg/200 Ml IVPB Infused Q6H PRN Infusion Pain Rated 1-3 Morphine Sulfate 1 mg 09/11/23 14:14 Morphine Sulfate (*Crx) 2 Mg/Ml Inj IV PUSH Q2H PRN Pain Rated 4-6 Morphine Sulfate 2 mg 09/11/23 14:14 09/12/23 05:57 Morphine Sulfate (*Crx) 2 Mg/Ml Inj IV PUSH 2 mg Q2H PRN Administration Pain Rated 7-10 Naloxone HCl 0.2 mg 09/09/23 17:14 Naloxone Hcl 0.4 Mg/Ml Vial IV PUSH Q5MIN PRN NUTRITION COORDINATOR Management Ondansetron HCl 4 mg 09/07/23 08:25 09/12/23 06:30 Ondansetron Inj 4 Mg/2 Ml Vial IV PUSH 4 mg Q6H PRN Administration Nausea And Vomiting Oxycodone/Acetaminophen 1 tablet 09/11/23 14:14 09/12/23 08:43 Oxycodone/Acetaminophen (*Crx) 5-325 Mg Tablet PO 1 tablet Q4H PRN Administration Pain Rated 4-6 Jayjay
[2023-09-12] MEDS: KCL 20 MEQ/D5/0.9% SOD CHL 1,000 ML 100 ML IV CONT ×2 (11:58→23:00)
[2023-09-12 16:08] LABS: Potassium 3.6 mmol/L (3.4-5.0)
[2023-09-12] MEDS: MORPHINE SULFATE (*CRX) 2 MG/ML INJ 1 MG IV PUSH (16:31)
--- NOTE | 2023-09-12 18:31 | WPDGIPROGNO ---
Progress Note: A&P Assessment and Plan (1) Cholelithiasis with choledocholithiasis: Code(s): K80.70 - Calculus of gallbladder and bile duct without cholecystitis without obstruction Status: Acute Assessment and Plan: ercp with stones removed and pancreatic duct was not even cannulated but still she developed pancreatitis she is more comfortable and doing better normalization of bili and tolerating liquid diet possible cholecystectomy tomorrow (2) Common bile duct dilation: Code(s): K83.8 - Other specified diseases of biliary tract Status: Deleted Assessment and Plan: treated with ercp, stone removed (3) Transaminitis: Code(s): R74.01 - Elevation of levels of liver transaminase levels Status: Acute Assessment and Plan: monitor worsened after pancreatitis but trending back down again (4) Acute pancreatitis after endoscopic retrograde cholangiopancreatography (ERCP): Code(s): K91.89 - Other postprocedural complications and disorders of digestive system; K85.90 - Acute pancreatitis without necrosis or infection, unspecified Status: Acute Assessment and Plan: medical support, she is feeling better noted dark stool, change miralax to prn and monitor (5) Nausea and vomiting in adult: Code(s): R11.2 - Nausea with vomiting, unspecified Status: Deleted Assessment and Plan: advance to liquid diet (6) SIRS (systemic inflammatory response syndrome): Code(s): R65.10 - Systemic inflammatory response syndrome (SIRS) of non-infectious origin without acute organ dysfunction Status: Acute Assessment and Plan: this is probably from acute pancreatitis empirically on abx for now but discontinue if culture negative Subjective Date/time seen: 09/12/23 18:31 Interval history: she is more comfortable, less abdominal pain had liquid dark stools Review of Systems Review of Systems: All systems reviewed & are unremarkable except as noted in HPI and below Exam Const: General: comfortable HENMT: Face/Nose/Sinus: Normal nares present Eyes: Sclera: sclerae normal Neck: Neck: supple Resp: Effort & Inspection: normal respiratory effort Cardio: Rate: regular rate GI: Inspection: non-distended GI Palp: Yes Soft to palpation and Yes Tenderness to palpation present (GI) (mild epigastric) Auscultation: normal bowel sounds Skin: General skin exam: normal color Neuro: Speech: normal speech Motor exam (neuro): 5/5 motor strength present throughout Extrem: General: normal to inspection Psych: Mental Status: mental status grossly normal Objective Data Vital Signs Vital Signs: Vital Signs - 24 hr 09/11/23 21:18 09/12/23 05:05 09/12/23 08:00 Temperature 98.2 F 97.9 F 97.7 F Pulse Rate 110 H 109 H 100 Respiratory Rate 16 16 17 Blood Pressure 112/67 116/80 118/76 Pulse Oximetry 95 96 96 Oxygen Delivery 09/12/23 08:00 09/12/23 09:00 09/12/23 16:00 Temperature 97.6 F Pulse Rate 100 Respiratory Rate 17 Blood Pressure 114/70 Pulse Oximetry 96 96 96 Oxygen Delivery Room Air Room Air Intake/Output Intake/Output: Intake & Output 09/09/23 09/10/23 09/11/23 09/12/23 23:59 23:59 23:59 23:59 Intake Total 5030 4270 4080 3660 Output Total 1150 900 Balance 5030 3120 3180 3660 Meds/Results Medications: Active Medications Generic Name Dose Route Start Last Admin Trade Name Freq PRN Reason Stop Dose Admin Acetaminophen 500 mg 09/11/23 14:14 Acetaminophen 500 Mg Tablet PO Q6H PRN Mild Pain (1-3) or Fever Enoxaparin Sodium 40 mg 09/10/23 09:00 09/12/23 08:36 Enoxaparin 40 Mg/0.4 Ml Syringe SUB-Q 40 mg DAILY DAMON Administration Famotidine 20 mg 09/11/23 21:00 09/12/23 08:43 Famotidine 20 Mg Tablet PO 20 mg Q12HR DAMON Administration Potassium Chloride/Dextrose/Sod Cl 1,000 mls @ 100 mls/hr 09/10/23 14:05 09/12/23 16:45 Kcl 20 Meq/D5/0.9% Sod Ch
[2023-09-12] MEDS: IBUPROFEN IV 800 MG/200 ML 800 MG/200 ML BAG 400 MG IVPB (22:11)
[2023-09-13] VITALS (16 sets, daily range): BP systolic 85–118; BP diastolic 45–85; PULSE 89–108; RESP 14–20; TEMP 36.4–37.7; O2SAT 93–100
[2023-09-13] MEDS: PIPERACILLN/TAZ 3.375GM/NS50ML 3.375 GM/50 ML BAG IVPB ×4 (00:43→16:59)
[2023-09-13] MEDS: MORPHINE SULFATE (*CRX) 2 MG/ML INJ IV PUSH ×4 (01:41→19:41)
[2023-09-13 05:45] LABS: Hematocrit 26.9 % (37.0-47.0); Hemoglobin 8.6 g/dL (12.0-15.0); Mean Corpuscular Hemoglobin 27.7 pg (26-34); Mean Corpuscular Volume 86.8 fl (80-100); Platelet Count Result 269 k/mm3 (150-375); Red Cell Distribution Width 20.8 % (11.5-14.5); White Blood Count 9.4 K/mm3 (4.5-10.0)
[2023-09-13 05:53] LABS: Lipase 447 U/L (23-300); Magnesium 1.7 mg/dL (1.6-2.3); Phosphorus 1.8 mg/dL (2.5-4.5)
--- NOTE | 2023-09-13 08:35 | PM.IMPN ---
Progress Note: A&P Assessment and Plan (1) Nausea and vomiting in adult: Code(s): R11.2 - Nausea with vomiting, unspecified Status: Deleted (2) RUQ pain: Code(s): R10.11 - Right upper quadrant pain Status: Deleted (3) Cholelithiasis with choledocholithiasis: Code(s): K80.70 - Calculus of gallbladder and bile duct without cholecystitis without obstruction Status: Acute (4) Common bile duct dilation: Code(s): K83.8 - Other specified diseases of biliary tract Status: Deleted (5) Cholelithiasis: Qualifiers: Biliary obstruction: with biliary obstruction Cholecystitis acuity: acute Cholecystitis presence: with cholecystitis Cholelithiasis location: bile duct Qualified Code(s): K80.43 - Calculus of bile duct with acute cholecystitis with obstruction Code(s): K80.20 - Calculus of gallbladder without cholecystitis without obstruction Status: Deleted (6) Transaminitis: Code(s): R74.01 - Elevation of levels of liver transaminase levels Status: Acute (7) Acute pancreatitis after endoscopic retrograde cholangiopancreatography (ERCP): Code(s): K91.89 - Other postprocedural complications and disorders of digestive system; K85.90 - Acute pancreatitis without necrosis or infection, unspecified Status: Acute Plan Cholelithiasis: ?Code(s): K80.20 - Calculus of gallbladder without cholecystitis without obstruction ?Status:?Acute ?Assessment and Plan: 09/07/2023: Ultrasound of abdomen showing cholelithiasis with positive sonographic Rich's equivocal for acute cholecystitis, mild dilatation of the common bile duct of 7 mm suggestive of a distal obstructing stone MRCP showing cholelithiasis/choledocholithiasis with mild intra and extra hepatic biliary ductal dilatation General surgery consulted, plans laparoscopic cholecystectomy GI consulted. Continue with pain control Remain NPO, continue IV fluids ERCP was done September 07, , gallstone was extracted from biliary duct and pancreatic duct 09/12: Schedule cholecystectomy today Acute pancreatitis after ERCP 09/07 Keep patient p.o. 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 p.o. f/u mg and phos Medicine 1.7, on the lower side, potassium sulfate 2 g IV once Hypophosphatemia 09/12 Replete with K-Phos 20 millimoles once SIRS vs SEPSIS Patient has tachycardia tachypnea, leukocytosis 11,100 with left shift, f/u CXR, blood culture and procalcitonin level Zosyn was stopped September 08, start cefepime and Flagyl 09/09, deescalate antibiotics once sepsis is ruled out 09/10: afeb BP stable and procalcitonin 0.2, wbc wnl, possible sirs, will dc abx if BCX negative X-ray showed bilateral infiltrates and atelectasis, prominent left lower lobe ? Aspiration pneumonia Patient is on antibiotics 09/11: dc abx, possible SIRS, BCX no growth Abdomen distension Follow KUB, no obstruction c/w Reglan iv imprpoves Transaminitis: ?Code(s): R74.01 - Elevation of levels of liver transaminase levels ?Status:?Acute ?Assessment and Plan: 09/07/2023: Total bili 3.7, AST 442, ALT 392, alk-phos 345 Rise in bilirubin and liver enzymes likely due to obstructing stone now the liver enzymes and total bilirubin are trending down Common bile duct dilation: ?Code(s): K83.8 - Other specified diseases of biliary tract ?Status:?Acute ?Assessment and Plan: See above plan of care Abnormal discharge from vagina Patient delivered her baby in July Noticed abnormal discharge from vagina today Chronic patient is afebrile, blood pressure stable Consult OBGYN for evaluation and treatment Subjecti
[2023-09-13 09:12] LABS: Alanine Aminotransferase 41 U/L (6-35); Albumin Level 2.3 g/dL (3.5-5.1); Alkaline Phosphatase 92 U/L (38-126); Anion Gap 2 mmol/L (4-12); Aspartate Amino Transferase 37 U/L (14-36); Bilirubin,Total 0.9 mg/dL (0.2-1.3); Carbon Dioxide 24 mmol/L (22-30); Chloride 109 mmol/L (98-107); Estimated CRCL calculation 137 ml/min; Estimated Glomerular Filt Rate > 60; Glucose 136 mg/dL (65-110); Potassium 3.5 mmol/L (3.4-5.0); Sodium 135 mmol/L (137-145)
[2023-09-13] MEDS: POTASSIUM PHOS,M-BASIC-D-BASIC 20 MMOL in SODIUM CHLORIDE 0.9% IV 250 ML 64.17 MMOL IVPB (09:35)
[2023-09-13] MEDS: MAGNESIUM SULF 2 GM/WATER 50ML 2 GM/50 ML BAG IVPB (09:49)
[2023-09-13 10:18] LABS: Blood Urea Nitrogen < 2 mg/dL (7-17)
--- NOTE | 2023-09-13 11:13 | WPDHPUPDATE1 ---
History and Physical Update Update Date/Time: 09/13/23 11:13 History and Physical has been reviewed, including an updated exam of the patient. There are NO changes in the patient's condition. Risks, benefits, and alternatives have been discussed and questions answered. Patient agrees to proceed with procedure.
--- NOTE | 2023-09-13 11:35 | PC.NURSE ---
Patient off floor to OR via bed.
[2023-09-13] MEDS: LACTATED RINGERS 1,000 ML 30 ML IV CONT (12:03)
--- NOTE | 2023-09-13 12:04 | WPDANESEPPF ---
Anes - Initial Pre Proc Eval Procedure: Operation Date: 09/08/23 12:00 Proposed Procedures p Endoscopic Retro Cholangiopancreatogram - Pete Orr MD Operation Date: 09/13/23 13:00 Proposed Procedures p Laparoscopic Cholecystectomy - Isra Palmer DO Date/Time: 09/13/23 12:04 Surgeon: Tommy Lua MD Pre Op Diagnosis: Acute cholecystitis, Obstructing gallstone Patient Data Age: 23 Gender: F Height: 1.63 m Weight: 49.7 kg Last Vital Signs Temp 99.8 F H 09/13/23 08:00 Pulse 94 09/13/23 11:48 Resp 18 09/13/23 11:48 BP 117/79 09/13/23 11:48 Pulse Ox 100 09/13/23 11:48 O2 Del Method Room Air 09/13/23 11:48 O2 Flow Rate 1 09/11/23 08:53 FiO2 21 09/09/23 17:02 Allergies Allergy/AdvReac Type Severity Reaction Status Date / Time No Known Allergies Allergy Verified 09/08/23 11:25 Home Medications Medication Instructions Recorded Confirmed Type famotidine 20 mg tablet (Pepcid) 20 mg PO HS #14 tabs 09/27/22 09/06/23 Rx Laboratory Tests 09/12/23 09/13/23 09/13/23 15:56 05:17 05:21 WBC 9.4 K/mm3 (4.5-10.0) RBC 3.10 L M/mm3 (4.2-5.4) Hgb 8.6 L g/dL (12.0-15.0) Hct 26.9 L % (37.0-47.0) MCV 86.8 fl (80-100) MCH 27.7 pg (26-34) MCHC 32.0 g/dl (32-36) RDW 20.8 H % (11.5-14.5) Plt Count 269 k/mm3 (150-375) MPV 10.0 fl (7.4-10.4) Sodium 135 L mmol/L (137-145) Potassium 3.6 mmol/L 3.5 mmol/L (3.4-5.0) (3.4-5.0) Chloride 109 H mmol/L (98-107) Carbon Dioxide 24 mmol/L (22-30) Anion Gap 2 L mmol/L (4-12) BUN < 2 L mg/dL (7-17) Creatinine 0.40 L mg/dL (0.7-1.0) Estim Creat Clear Calc 137 ml/min Estimated GFR > 60 (59 - ) Glucose 136 H mg/dL (65-110) Calcium 7.0 L mg/dL (8.4-10.2) Phosphorus 1.8 L mg/dL (2.5-4.5) Magnesium 1.7 mg/dL (1.6-2.3) Total Bilirubin 0.9 mg/dL (0.2-1.3) AST 37 H U/L (14-36) ALT 41 H U/L (6-35) Alkaline Phosphatase 92 U/L (38-126) Total Protein 5.0 L g/dL (6.3-8.2) Albumin 2.3 L g/dL (3.5-5.1) Lipase 447 H U/L (23-300) Patient hx anesthesia problems: none Family hx anesthesia problems: none Results Review: All pre-operative results and documents have been reviewed as part of the pre-operative evaluation. [facility] Past Medical History Medical History (Updated 09/12/23 @ 11:24 by Isra Palmer DO) Cholelithiasis with choledocholithiasis Healthy female adult History of vaginal delivery 07/24/23 SIRS (systemic inflammatory response syndrome) Surgical History Surgical History No history of previous surgery Family History Family History Other Family history non-contributory Social History Social History Social History: Surrogate medical decision maker: Michele Krishnan, spouse. Code status: Full code. Smoking status: Never smoker Additional living arrangements comments: Lives with and their 2 children in [place]. 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 Spiritual care concerns: Yes Anes - Eval Final PreProcedure Day of Procedure 09/13/23 12:04 Patient weight: normal Heart: regular rate and rhythm Lungs: clear to auscultation Airway: Mallampati scale class II Neurological: alert and oriented Last oral intake: >/= 8 hours Emergent: no Anesthetic plan: proceed Anesthesia type and monitoring: general ETT and standard monitoring Results Review: All pre-operative results and documents have been reviewed as part of the pre-operative evaluation. Informed Consen
[2023-09-13] MEDS: ceFAZolin 2 GM/D5W 50 ML 2 GM/50 ML BAG IVPB (12:29)
[2023-09-13] MEDS: BUPIVACAINE/EPINEPHRINE 0.5% 30 ML VIAL INFILTRATE (13:04)
--- NOTE | 2023-09-13 13:35 | W.PM.PROC2 ---
Procedure Note - Detailed Date of Procedure 09/13/23 Pre-op Diagnosis Cholelithiasis, choledocholithiasis, acute pancreatitis Post-op Diagnosis Same Procedure Performed Laparoscopic cholecystectomy Surgeon Isra Palmer, DO Anesthesia General and Local (0.5% bupivacaine) Indications This is a 23-year-old woman who presented to the emergency department with acute onset of upper abdominal pain. She is about 6 weeks post delivery of her child. She had no other complications during the . In the emergency department she was noted to have signs of cholelithiasis and dilated common bile duct. Her liver enzymes were also significantly elevated. She underwent ERCP with sphincterotomy and common bile duct stone extraction. She was found to have acute pancreatitis after the ERCP. She slowly improved over the next few days in terms of her pancreatitis. Discussions were made with the patient about treatment options and decision was made to proceed with laparoscopic cholecystectomy, possible open. Findings Laparoscopic cholecystectomy was performed. Upon entering the abdomen there did appear to be a large amount of clear bilious ascites. There was about 1500 mL of ascites that was aspirated from her abdomen. She also had some signs of saponification of fat along the omentum and epiploic appendages. She still had some swelling of her pancreas which did make visualization down near the neck of the gallbladder somewhat difficult. I was able to use a 30 degree angled scope to see better and to adequately visualize the neck of the gallbladder and the cystic duct. The critical view was able to be easily visualized and the gallbladder was then removed. There were multiple small stones within the gallbladder. Description of Procedure Procedure as well as risks, benefits, and alternatives were discussed with patient. Written consent was obtained and placed in chart prior to procedure. The patient was brought back to surgical suite. Patient was placed in supine position on operating table. Time-out was done to confirm patient and procedure. Patient was then intubated by the anesthesia department. Abdomen was prepped and draped in sterile fashion using chlorhexidine prep. 0.5% bupivacaine with epinephrine was infiltrated at each site of incision. An 11 millimeter vertical incision was made at the inferior portion of the umbilicus using a 15 blade scalpel. Blunt dissection was carried down to the linea alba. The linea alba was then incised using a 15 blade scalpel. The peritoneum was then bluntly entered. An 11 millimeter trocar was inserted and carbon dioxide insufflation was used to create a pneumoperitoneum. The camera was inserted and the abdomen was inspected. The patient was placed in reverse Trendelenberg position and rotated slightly to the left. A 5 millimeter incision was made in the epigastric region, and a 5 millimeter trocar was inserted under direct visualization. Two 5 millimeter incisions were made in the right upper quadrant, and two 5 millimeter trocars were inserted under direct visualization. The gallbladder was identified and grasped at the fundus and retracted superiorly. It was then grasped at the infundibulum retracted laterally. Careful dissection around the neck of the gallbladder was performed using blunt dissection with a [place] grasper and hook electrocautery. The cystic duct was identified, and a window was created behind it. The cystic artery was also identified and a window was created behind it. The critical view of safety was identified, visualizing the cystic duct running directly into the neck of the gallbladder, and the cystic artery running directly into the wall of the gallbladder. A 5 millimeter clip screen printer helper was then used to place 2 clips proximally and 1 clip distally on both the cystic duct and cystic artery. They were then both transected using endoscopic scissors. Once safely away from the kip hepatitis, t
--- NOTE | 2023-09-13 13:58 | WPDGIPROGNO ---
Progress Note: A&P Assessment and Plan (1) Cholelithiasis with choledocholithiasis: Code(s): K80.70 - Calculus of gallbladder and bile duct without cholecystitis without obstruction Status: Acute Assessment and Plan: ercp with stones removed and pancreatic duct was not even cannulated but still she developed pancreatitis symptomatically better, lap cholecystectomy today (2) Common bile duct dilation: Code(s): K83.8 - Other specified diseases of biliary tract Status: Deleted Assessment and Plan: treated with ercp, stone removed (3) Transaminitis: Code(s): R74.01 - Elevation of levels of liver transaminase levels Status: Acute Assessment and Plan: improved after pancreatitis, normalization of bili (4) Acute pancreatitis after endoscopic retrograde cholangiopancreatography (ERCP): Code(s): K91.89 - Other postprocedural complications and disorders of digestive system; K85.90 - Acute pancreatitis without necrosis or infection, unspecified Status: Acute Assessment and Plan: medical support, she is feeling better (5) Nausea and vomiting in adult: Code(s): R11.2 - Nausea with vomiting, unspecified Status: Deleted Assessment and Plan: improved, lap estela today (6) SIRS (systemic inflammatory response syndrome): Code(s): R65.10 - Systemic inflammatory response syndrome (SIRS) of non-infectious origin without acute organ dysfunction Status: Acute Assessment and Plan: this is probably from acute pancreatitis empirically on abx, ok to dc Subjective Date/time seen: 09/13/23 10:58 Interval history: pain has improved and she will have lap estela Review of Systems Review of Systems: All systems reviewed & are unremarkable except as noted in HPI and below Exam Const: General: comfortable HENMT: Face/Nose/Sinus: Normal nares present Eyes: Sclera: sclerae normal Neck: Neck: supple Resp: Effort & Inspection: normal respiratory effort Cardio: Rate: regular rate GI: Inspection: non-distended GI Palp: Yes Soft to palpation and Yes Tenderness to palpation present (GI) (mild epigastric) Auscultation: normal bowel sounds Skin: General skin exam: normal color Neuro: Speech: normal speech Motor exam (neuro): 5/5 motor strength present throughout Extrem: General: normal to inspection Psych: Mental Status: mental status grossly normal Objective Data Vital Signs Vital Signs: Vital Signs - 24 hr 09/12/23 16:00 09/12/23 22:04 09/12/23 22:11 Temperature 97.6 F 101.4 F H 101.4 F H Pulse Rate 100 120 H Respiratory Rate 17 16 Blood Pressure 114/70 120/84 Pulse Oximetry 96 95 Oxygen Delivery Oxygen Flow Rate 09/12/23 23:57 09/13/23 01:45 09/13/23 05:23 Temperature 100.9 F H 98.8 F 97.6 F Pulse Rate 125 H 91 Respiratory Rate 20 14 Blood Pressure 114/65 113/70 Pulse Oximetry 95 95 Oxygen Delivery Oxygen Flow Rate 09/13/23 08:00 09/13/23 09:10 09/13/23 11:48 Temperature 99.8 F H Pulse Rate 108 H 94 Respiratory Rate 14 18 Blood Pressure 110/72 117/79 Pulse Oximetry 98 100 Oxygen Delivery Room Air Room Air Oxygen Flow Rate 09/13/23 13:40 Temperature 97.8 F Pulse Rate 99 Respiratory Rate 14 Blood Pressure 85/45 L Pulse Oximetry 100 Oxygen Delivery Simple Face Mask Oxygen Flow Rate 6 Intake/Output Intake/Output: Intake & Output 09/10/23 09/11/23 09/12/23 09/13/23 23:59 23:59 23:59 23:59 Intake Total 4270 4080 4860 427.9 Output Total 0636 823 6671 Balance 3120 3180 4860 -772.1 Meds/Results Medications: Active Medications Generic Name Dose Route Start Last Admin Trade Name Freq PRN Reason Stop Dose Admin Acetaminophen 500 mg 09/11/23 14:14 Acetaminophen 500 Mg Tablet PO Q6H PRN Mild Pain (1-3) or Fever Enoxaparin Sodium 40 mg 09/10/23 09:00 09/13/23 08:06 Enoxaparin 40 Mg/0.4 Ml Syringe SUB-Q Not Given
--- NOTE | 2023-09-13 15:15 | PC.NURSE ---
Pt returned to room from PACU via bed.
[2023-09-13] MEDS: POTASSIUM CHLORIDE 20 MEQ PACKET (FOR LIQUID) 40 MEQ PO (16:59)
[2023-09-13] MEDS: FAMOTIDINE 20 MG TABLET PO (22:20)
[2023-09-13] MEDS: HYDROcodone/acetaminophen (*CRX) 5-325 MG TABLET 1 TAB PO (22:20)
[2023-09-14] MEDS: PIPERACILLN/TAZ 3.375GM/NS50ML 3.375 GM/50 ML BAG IVPB ×3 (00:16→11:50)
[2023-09-14 00:51] VITALS: BP 115/70; PULSE 90; RESP 16; TEMP 36.9; O2SAT 100
[2023-09-14] MEDS: HYDROcodone/acetaminophen (*CRX) 10-325 MG TABLET 1 TAB PO ×2 (02:17→11:54)
[2023-09-14 04:51] VITALS: BP 116/74; PULSE 74; RESP 18; TEMP 36.1; O2SAT 99
[2023-09-14] MEDS: MORPHINE SULFATE (*CRX) 4 MG/ML INJ IV PUSH (04:56)
[2023-09-14 07:20] LABS: Alanine Aminotransferase 37 U/L (6-35); Albumin Level 2.7 g/dL (3.5-5.1); Alkaline Phosphatase 107 U/L (38-126); Anion Gap 1 mmol/L (4-12); Aspartate Amino Transferase 41 U/L (14-36); Bilirubin,Total 0.8 mg/dL (0.2-1.3); Blood Urea Nitrogen 8 mg/dL (7-17); Calcium 7.6 mg/dL (8.4-10.2); Carbon Dioxide 28 mmol/L (22-30); Chloride 106 mmol/L (98-107); Estimated CRCL calculation 113 ml/min; Estimated Glomerular Filt Rate > 60; Glucose 161 mg/dL (65-110); Magnesium 2.2 mg/dL (1.6-2.3); Phosphorus 3.4 mg/dL (2.5-4.5); Potassium 4.1 mmol/L (3.4-5.0); Sodium 135 mmol/L (137-145)
--- NOTE | 2023-09-14 07:53 | PM.IMPN ---
Progress Note: A&P Assessment and Plan (1) Nausea and vomiting in adult: Code(s): R11.2 - Nausea with vomiting, unspecified Status: Deleted (2) RUQ pain: Code(s): R10.11 - Right upper quadrant pain Status: Deleted (3) Cholelithiasis with choledocholithiasis: Code(s): K80.70 - Calculus of gallbladder and bile duct without cholecystitis without obstruction Status: Acute (4) Common bile duct dilation: Code(s): K83.8 - Other specified diseases of biliary tract Status: Deleted (5) Cholelithiasis: Qualifiers: Biliary obstruction: with biliary obstruction Cholecystitis acuity: acute Cholecystitis presence: with cholecystitis Cholelithiasis location: bile duct Qualified Code(s): K80.43 - Calculus of bile duct with acute cholecystitis with obstruction Code(s): K80.20 - Calculus of gallbladder without cholecystitis without obstruction Status: Deleted (6) Transaminitis: Code(s): R74.01 - Elevation of levels of liver transaminase levels Status: Acute (7) Acute pancreatitis after endoscopic retrograde cholangiopancreatography (ERCP): Code(s): K91.89 - Other postprocedural complications and disorders of digestive system; K85.90 - Acute pancreatitis without necrosis or infection, unspecified Status: Acute Plan Cholelithiasis: ?Code(s): K80.20 - Calculus of gallbladder without cholecystitis without obstruction ?Status:?Acute ?Assessment and Plan: 09/07/2023: Ultrasound of abdomen showing cholelithiasis with positive sonographic Rich's equivocal for acute cholecystitis, mild dilatation of the common bile duct of 7 mm suggestive of a distal obstructing stone MRCP showing cholelithiasis/choledocholithiasis with mild intra and extra hepatic biliary ductal dilatation General surgery consulted, plans laparoscopic cholecystectomy GI consulted. Continue with pain control Remain NPO, continue IV fluids ERCP was done September 07, , gallstone was extracted from biliary duct and pancreatic duct 09/12: Schedule cholecystectomy today 09/13: Patient underwent cholecystectomy yesterday, without complication Acute pancreatitis after ERCP 09/07 Keep patient p.o. 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 p.o. f/u mg and phos Medicine 1.7, on the lower side, potassium sulfate 2 g IV once Corrected Hypophosphatemia 09/12 Replete with K-Phos 20 millimoles once Corrected SIRS Patient has tachycardia tachypnea, leukocytosis 11,100 with left shift,, blood culture and procalcitonin level Zosyn was stopped September 08, start cefepime and Flagyl 09/09, deescalate antibiotics once sepsis is ruled out 09/10: afeb BP stable and procalcitonin 0.2, wbc wnl, possible sirs, will dc abx if BCX negative X-ray showed bilateral infiltrates and atelectasis, prominent left lower lobe ? Aspiration pneumonia Patient is on antibiotics 09/11: dc abx, possible SIRS, BCX no growth Abdomen distension Follow KUB, no obstruction c/w Reglan iv imprpoves Transaminitis: ?Code(s): R74.01 - Elevation of levels of liver transaminase levels ?Status:?Acute ?Assessment and Plan: 09/07/2023: Total bili 3.7, AST 442, ALT 392, alk-phos 345 Rise in bilirubin and liver enzymes likely due to obstructing stone now the liver enzymes and total bilirubin are trending down Common bile duct dilation: ?Code(s): K83.8 - Other specified diseases of biliary tract ?Status:?Acute ?Assessment and Plan: See above plan of care Abnormal discharge from vagina Patient delivered her baby in July Noticed abnormal discharge from vagina today Chronic patient is afebrile, blood
[2023-09-14] MEDS: ENOXAPARIN 40 MG/0.4 ML SYRINGE SUB-Q (08:44)
[2023-09-14] MEDS: POTASSIUM CHLORIDE 20 MEQ PACKET (FOR LIQUID) 40 MEQ PO (08:44)
[2023-09-14] MEDS: FAMOTIDINE 20 MG TABLET PO (08:44)
--- NOTE | 2023-09-14 08:47 | WPDANESPN ---
Anes - Prog Note Post-Op Date/Time: 09/14/23 08:47 Cardiovascular status: normal Respiratory status: normal Airway patency: baseline Mental status: baseline Post-Op hydration status: normal Vital Signs: Last Vital Signs Temp 36.1 C L 09/14/23 04:51 Pulse 74 09/14/23 04:51 Resp 18 09/14/23 04:51 BP 116/74 09/14/23 04:51 Pulse Ox 99 09/14/23 04:51 O2 Del Method Room Air 09/13/23 15:15 O2 Flow Rate 6 09/13/23 14:10 FiO2 21 09/09/23 17:02 Pain Score (VAS): 08/20 I/O: Intake & Output 09/13/23 09/14/23 09/14/23 23:59 07:59 15:59 Intake Total 770 300 Output Total 250 Balance 770 50 Laboratory Tests 09/13/23 05:21 09/14/23 06:58 09/13/23 09/14/23 05:17 06:58 Sodium 135 L 135 L Potassium 3.5 4.1 Chloride 109 H 106 Carbon Dioxide 24 28 Anion Gap 2 L 1 L BUN < 2 L 8 D Creatinine 0.40 L 0.50 L Estim Creat Clear Calc 137 113 Estimated GFR > 60 > 60 Glucose 136 H 161 H Calcium 7.0 L 7.6 L Phosphorus 3.4 Magnesium 2.2 Total Bilirubin 0.9 0.8 AST 37 H 41 H ALT 41 H 37 H Alkaline Phosphatase 92 107 Total Protein 5.0 L 6.0 L Albumin 2.3 L 2.7 L Post-procedural complaints: none Patient Feedback: Patient satisfied with anesthetic care. Other Findings: translation Ipad services used
[2023-09-14 08:51] VITALS: BP 121/85; PULSE 82; RESP 16; TEMP 36.4; O2SAT 94
--- NOTE | 2023-09-14 10:02 | PM.DS ---
DS: Admitting Diagnosis Discharge Date 09/13/23 Admitting Diagnosis (1) Nausea and vomiting in adult: ?Code(s): R11.2 - Nausea with vomiting, unspecified ?Status:?Deleted (2) RUQ pain: ?Code(s): R10.11 - Right upper quadrant pain ?Status:?Deleted (3) Cholelithiasis with choledocholithiasis: ?Code(s): K80.70 - Calculus of gallbladder and bile duct without cholecystitis without obstruction ?Status:?Acute (4) Common bile duct dilation: ?Code(s): K83.8 - Other specified diseases of biliary tract ?Status:?Deleted (5) Cholelithiasis: ?Qualifiers: ?Biliary obstruction:?with biliary obstruction??Cholecystitis acuity:?acute??Cholecystitis presence:?with cholecystitis??Cholelithiasis location:?bile duct? Qualified Code(s):?K80.43 - Calculus of bile duct with acute cholecystitis with obstruction ?Code(s): K80.20 - Calculus of gallbladder without cholecystitis without obstruction ?Status:?Deleted (6) Transaminitis: ?Code(s): R74.01 - Elevation of levels of liver transaminase levels ?Status:?Acute (7) Acute pancreatitis after endoscopic retrograde cholangiopancreatography (ERCP): ?Code(s): K91.89 - Other postprocedural complications and disorders of digestive system; K85.90 - Acute pancreatitis without necrosis or infection, unspecified ?Status:?Acute DS: Discharge Diagnosis Discharge Diagnosis (1) Nausea and vomiting in adult: Code(s): R11.2 - Nausea with vomiting, unspecified Status: Deleted (2) RUQ pain: Code(s): R10.11 - Right upper quadrant pain Status: Deleted (3) Cholelithiasis with choledocholithiasis: Code(s): K80.70 - Calculus of gallbladder and bile duct without cholecystitis without obstruction Status: Acute (4) Common bile duct dilation: Code(s): K83.8 - Other specified diseases of biliary tract Status: Deleted (5) Cholelithiasis: Qualifiers: Biliary obstruction: with biliary obstruction Cholecystitis acuity: acute Cholecystitis presence: with cholecystitis Cholelithiasis location: bile duct Qualified Code(s): K80.43 - Calculus of bile duct with acute cholecystitis with obstruction Code(s): K80.20 - Calculus of gallbladder without cholecystitis without obstruction Status: Deleted (6) Transaminitis: Code(s): R74.01 - Elevation of levels of liver transaminase levels Status: Acute (7) Acute pancreatitis after endoscopic retrograde cholangiopancreatography (ERCP): Code(s): K91.89 - Other postprocedural complications and disorders of digestive system; K85.90 - Acute pancreatitis without necrosis or infection, unspecified Status: Acute DS: Summary Hospital Course Hospital Course: Per H&P: This is a very pleasant 23-year-old female without medical history who presented to the emergency department via private vehicle for evaluation of abdominal pain. She is Wolof speaking and the following history is obtained with the aid of a video supervisor core shop service. Tuesday afternoon she had tacos for lunch and not long thereafter she developed colicky pain in the epigastric region which radiated to the right upper quadrant and around through the back. She had sweats and nausea with that and endorses 1 episode of emesis. She felt a bit better after vomiting however the pain has continued to come and go since that time. Tylenol did not seem to help much. Her appetite has been poor since then and she has only had a little bit of broth here and there. Family members who had the same lunch have not experienced similar symptoms. She has never had symptoms. She denies fever, hematemesis, bloating, belching, epigastric pain, indigestion, diarrhea, hematochezia, and melena. In the ED: She was afebrile on arrival with stable vital signs. Labs were significant for a total bilirubin of 3.7, AST 442, ALT 392, alkaline phosphatase 345, lipase 152. Abdominal ultrasound showe
--- NOTE | 2023-09-14 10:11 | PM.PNGS ---
Progress Note: A&P Assessment and Plan (1) Cholelithiasis with choledocholithiasis: Code(s): K80.70 - Calculus of gallbladder and bile duct without cholecystitis without obstruction Status: Acute Assessment and Plan: Postop day 1 following laparoscopic cholecystectomy. Doing well and tolerating a low fat diet. Tolerating activity. Stable to discharge from a surgical standpoint. Follow low fat diet x 2 weeks. Follow-up with Dr. Palmer in 2 weeks. Discussed all discharge instructions with the patient with the plant quality manager and printed a low fat diet handout in [place] for her to take home. (2) Acute pancreatitis after endoscopic retrograde cholangiopancreatography (ERCP): Code(s): K91.89 - Other postprocedural complications and disorders of digestive system; K85.90 - Acute pancreatitis without necrosis or infection, unspecified Status: Acute Subjective Subjective Date/Time Seen: 09/14/23 10:11 Post Op day: 1 (lap estela) Patient reports: tolerating a regular diet and flatus Interval history: [place]ian speaking patient with all of our conversation done using the video plant quality manager. Patient reports incisional soreness that is tolerable this morning with oral pain medication. She denies nausea or vomiting. No issues overnight. Exam Const: General: comfortable and no acute distress GI: Inspection: non-distended and incision (incisions dry and intact) GI Palp: Yes Soft to palpation, Yes Tenderness to palpation present (GI) (incisional) and No Guarding due to palpation present (GI) Auscultation: normal bowel sounds Neuro: General: moves all extremities and no focal motor deficits Psych: Mental Status: mental status grossly normal Insight: Good insight present (Psych) Objective Data Vital Signs Vital Signs: Vital Signs - 24 hr 09/13/23 11:48 09/13/23 13:40 09/13/23 13:55 Temperature 97.8 F Pulse Rate 94 99 92 Respiratory Rate 18 14 14 Blood Pressure 117/79 85/45 L 101/60 Pulse Oximetry 100 100 100 Oxygen Delivery Room Air Simple Face Mask Simple Face Mask Oxygen Flow Rate 6 6 09/13/23 14:10 09/13/23 14:20 09/13/23 14:25 Temperature Pulse Rate 93 103 H Respiratory Rate 14 18 Blood Pressure 98/63 L 104/82 Pulse Oximetry 100 97 Oxygen Delivery Simple Face Mask Room Air Room Air Oxygen Flow Rate 6 09/13/23 14:40 09/13/23 14:55 09/13/23 15:15 Temperature Pulse Rate 98 104 H Respiratory Rate 16 16 Blood Pressure 114/85 110/77 Pulse Oximetry 94 95 97 Oxygen Delivery Room Air Room Air Room Air Oxygen Flow Rate 09/13/23 15:20 09/13/23 15:35 09/13/23 16:05 Temperature 98.1 F 98.6 F 98 F Pulse Rate 100 96 98 Respiratory Rate 16 14 20 Blood Pressure 118/79 118/81 107/71 Pulse Oximetry 93 95 96 Oxygen Delivery Oxygen Flow Rate 09/13/23 17:05 09/13/23 20:51 09/14/23 00:51 Temperature 98.7 F 98 F 98.5 F Pulse Rate 93 89 90 Respiratory Rate 16 16 16 Blood Pressure 110/68 113/77 115/70 Pulse Oximetry 98 97 100 Oxygen Delivery Oxygen Flow Rate 09/14/23 04:51 09/14/23 08:40 09/14/23 08:51 Temperature 97 F L 97.5 F L Pulse Rate 74 82 Respiratory Rate 18 16 Blood Pressure 116/74 121/85 Pulse Oximetry 99 94 Oxygen Delivery Room Air Oxygen Flow Rate Intake/Output Intake/Output: Intake & Output 09/11/23 09/12/23 09/13/23 09/14/23 23:59 23:59 23:59 23:59 Intake Total 4080 4860 2049.4 660 Output Total 900 1600 250 Balance 3180 4860 449.4 410 Meds/Results Medications: Active Medications Generic Name Dose Route Start Last Admin Trade Name Freq PRN Reason Stop Dose Admin Hydrocodone Bitart/Acetaminophen 1 tab 09/13/23 15:06 09/13/23 22:20 Hydrocodone/Acetaminophen (*Crx) 5-325 Mg Tablet PO 1 tab Q4H PRN Administration Pain Rated 4-6 Hydrocodone Bitart/Acetaminophen 1 tab 09/13/23 15:06 09/14/23 02:17 Hydrocodone/Acetaminophen (*Crx) 10-325 Mg Tablet PO 1 tab Q6H PRN Administration Pa
[2023-09-14 12:38] VITALS: BP 120/78; PULSE 79; RESP 20; TEMP 36.6; O2SAT 98
[2023-09-14 12:51] VITALS: BP 117/82; PULSE 73; RESP 20; TEMP 36.7; O2SAT 98
--- NOTE | 2023-09-14 16:24 | WPDGIPROGNO ---
Progress Note: A&P Assessment and Plan (1) Cholelithiasis with choledocholithiasis: Code(s): K80.70 - Calculus of gallbladder and bile duct without cholecystitis without obstruction Status: Acute Assessment and Plan: ercp with stones removed and pancreatic duct was not even cannulated but still she developed pancreatitis lap estela yesterday she is doing better and going home today (2) Common bile duct dilation: Code(s): K83.8 - Other specified diseases of biliary tract Status: Deleted Assessment and Plan: treated with ercp, stone removed (3) Transaminitis: Code(s): R74.01 - Elevation of levels of liver transaminase levels Status: Acute Assessment and Plan: trending down, improved normalization of bili (4) Acute pancreatitis after endoscopic retrograde cholangiopancreatography (ERCP): Code(s): K91.89 - Other postprocedural complications and disorders of digestive system; K85.90 - Acute pancreatitis without necrosis or infection, unspecified Status: Acute Assessment and Plan: medical support, she is feeling better and tolerating diet (5) Nausea and vomiting in adult: Code(s): R11.2 - Nausea with vomiting, unspecified Status: Deleted Assessment and Plan: resolved Subjective Date/time seen: 09/14/23 15:24 Interval history: della palmer yesterday, tolerating diet and pain has improved, she is going home today Review of Systems Review of Systems: All systems reviewed & are unremarkable except as noted in HPI and below Exam Const: General: comfortable and no acute distress HENMT: Face/Nose/Sinus: Normal nares present Eyes: Sclera: sclerae normal Neck: Neck: supple Resp: Auscultation: clear to auscultation bilaterally Cardio: Rate: regular rate GI: Inspection: non-distended and incision (incisions dry and intact) GI Palp: Yes Soft to palpation, Yes Tenderness to palpation present (GI) (incisional) and No Guarding due to palpation present (GI) Auscultation: normal bowel sounds Skin: General skin exam: normal color Neuro: General: moves all extremities and no focal motor deficits Psych: Mental Status: mental status grossly normal Insight: Good insight present (Psych) Objective Data Vital Signs Vital Signs: Vital Signs - 24 hr 09/13/23 17:05 09/13/23 20:51 09/14/23 00:51 Temperature 98.7 F 98 F 98.5 F Pulse Rate 93 89 90 Respiratory Rate 16 16 16 Blood Pressure 110/68 113/77 115/70 Pulse Oximetry 98 97 100 Oxygen Delivery 09/14/23 04:51 09/14/23 08:40 09/14/23 08:51 Temperature 97 F L 97.5 F L Pulse Rate 74 82 Respiratory Rate 18 16 Blood Pressure 116/74 121/85 Pulse Oximetry 99 94 Oxygen Delivery Room Air 09/14/23 12:38 09/14/23 12:51 Temperature 97.9 F 98.0 F Pulse Rate 79 73 Respiratory Rate 20 20 Blood Pressure 120/78 117/82 Pulse Oximetry 98 98 Oxygen Delivery Intake/Output Intake/Output: Intake & Output 09/11/23 09/12/23 09/13/23 09/14/23 23:59 23:59 23:59 23:59 Intake Total 4080 4860 2049.4 1070 Output Total 900 1600 250 Balance 3180 4860 449.4 820 Meds/Results Radiology Results: ITS Impressions Abdomen Ultrasound 09/06/23 17:27 IMPRESSION: 1. Cholelithiasis with positive sonographic Rich's on but without evident gallbladder wall thickening which is equivocal for acute cholecystitis. Could consider HIDA scan for further evaluation. 2. Mild dilation of the common bile duct to 7 mm which suggests possibility of a nonvisualized distal obstructing stone. Correlate with liver function tests and if clinically indicated would consider MRCP for further evaluation. MRCP 09/07/23 12:17 IMPRESSION: 1. Cholelithiasis/choledocholithiasis with mild intra and extrahepatic biliary ductal dilation. Could consider ERCP for stone extraction. Endo Retro Cholangiopancreatogram 09/08/23 13:31 IMPRESSION: 1. Choledocholithiasis. Please refer t
== END 2023-09-14 15:52 | disposition home or self-care (01) | DRG 263 ==
LOC: ANHED 15:45 → ANH3MEDSUR 18:52 → ANH2MED 19:25
PROVIDERS: Internal Medicine; Internal Medicine Gastroenterology; Physician Assistant; Surgery; Admitting Provider Family Medicine; Emergency Provider Emergency Medicine; Referring Provider Emergency Medicine; Visit Provider Hospitalist
PROC: 0FC98ZZ Extirpation of Matter from Common Bile Duct, Via Natural or Artificial Opening Endoscopic (ICD-10-PCS; CPT 43260; principal; 2023-09-08 12:00)
PROC: 0FT44ZZ Resection of Gallbladder, Percutaneous Endoscopic Approach (ICD-10-PCS; CPT 47562; principal; 2023-09-13 13:00)
DX: K80.63 Calculus of gallbladder and bile duct with acute cholecystitis with obstruction (principal); E87.6 Hypokalemia; R65.10 Systemic inflammatory response syndrome (SIRS) of non-infectious origin without acute organ dysfunction; E83.39 Other disorders of phosphorus metabolism; R74.01 Elevation of levels of liver transaminase levels; K91.89 Other postprocedural complications and disorders of digestive system; K85.80 Other acute pancreatitis without necrosis or infection; N89.8 Other specified noninflammatory disorders of vagina
CPT/HCPCS: 36415; 71045; 74018; 74160; 74183; 74329; 76376; 76705; 80053; 81001; 81025; 82150; 83605; 83690; 83735; 84100; 84132; 84145; 85025; 85027; 87040; 88304; 93005; 96374; 99285; A9270; A9577; G0378; J0330; J0690; J0692; J1100; J1170; J1650; J1741; J1836; J1885; J2270; J2371; J2405; J2543; J2550; J2704; J2765; J3010; J3475; J3480; J7030; J7040; J7050; J7070; J7120; Q9966; Q9967

== ENCOUNTER 2023-09-15 02:28 | Emergency (ER) | payer BC, SELFPAY ==
[2023-09-15 02:26] VITALS: BP 108/71; PULSE 97; RESP 19; TEMP 36.7; O2SAT 98
[2023-09-15] MEDS: MORPHINE SULFATE (*CRX) 4 MG/ML INJ IV PUSH (02:42)
[2023-09-15] MEDS: ONDANSETRON INJ 4 MG/2 ML VIAL IV PUSH (02:42)
--- NOTE | 2023-09-15 03:29 | ED.ABDPAIN ---
HPI - Abdominal Pain General Chief Complaint: Abdominal Pain Stated Complaint: abd pain Time Seen by Provider: 09/15/23 02:38 History of Present Illness HPI narrative: Patient is a 23-year-old female [place] Ze[place]ander-speaking only presents the emergency department this morning complaining of right upper quadrant abdominal pain. Patient had gallbladder surgery earlier today and was sent home with a script for narcotics use as needed for pain. Patient states that when she went to go picker box operator the script the pharmacy told her that they were out of this particular medication and to return tomorrow. Patient states that while she was home she was in severe pain so she decided to come to the emergency department for further evaluation. She denies any nausea or vomiting, denies any fevers or chills, and currently denies any additional symptoms at this time. Related Data Allergies Allergy/AdvReac Type Severity Reaction Status Date / Time No Known Allergies Allergy Verified 09/15/23 02:33 Review of Systems Review of Systems: All systems are reviewed and are negative unless stated otherwise in the HPI. [facility] Past Medical History Medical History Cholelithiasis with choledocholithiasis Healthy female adult History of vaginal delivery 07/24/23 SIRS (systemic inflammatory response syndrome) Surgical History Surgical History No history of previous surgery Family History Family History Other Family history non-contributory Social History Social History Social History: Surrogate medical decision maker: Michele Krishnan, spouse. Code status: Full code. Smoking status: Never smoker Additional living arrangements comments: Lives with and their 2 children in [place]. 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 Spiritual care concerns: Yes Exam Narrative: General: Alert, awake, afebrile, in moderate distress. HEENT: PERRL, no rhinorrhea, no post nasal drip, oropharynx clear. Neck: Trachea midline, no JVD, no lymphadenopathy. Cardiovascular: Regular rate and rhythm, no murmurs, rubs or gallops, no peripheral edema. Respiratory: Clear to auscultation bilaterally, no tachypnea, no wheezing, no rhonchi, no rubs, no respiratory distress. Abdomen: Soft, nontender, nondistended, no rebound, no guarding, no peritoneal signs, laparoscopic incisions noted on abdomen and are clean and dry with overlying skin glue. Musculoskeletal: No joint swelling or deformity, normal muscle tone. Skin: No rashes or petechia, no signs of infection. Psychiatric: Alert and oriented, normal behavior and judgment for situation. Neurological: Alert and oriented to person, place, and time. Follows all commands. No focal deficits, speech is clear and fluent. Course Vital Signs Vital signs: Vital Signs Temperature 98.1 F 09/15/23 02:26 Pulse Rate 97 09/15/23 02:26 Respiratory Rate 19 09/15/23 02:26 Blood Pressure 108/71 09/15/23 02:26 Pulse Oximetry 98 09/15/23 02:26 Temperature 98.1 F 09/15/23 02:26 Pulse Rate 74 09/15/23 05:01 Respiratory Rate 16 09/15/23 05:01 Blood Pressure 113/68 09/15/23 05:01 Pulse Oximetry 99 09/15/23 05:01 MDM - Abdominal Pain MDM Narrative Medical decision making narrative: The patient was evaluated by myself in the emergency department. History is obtained from patient who is an independent historian and physical exam was performed. External medical records were reviewed at this time. IV was established and pertinent tests were ordered. Translation services used to communicate with patient as she is [place]ander-speaking only. Patient was administered 4 mg of IV morphine and 4 mg of IV Zofran for pain and nausea. Differential diagnosis consider
[2023-09-15 03:37] VITALS: BP 114/78; PULSE 100; RESP 19; O2SAT 100
[2023-09-15] MEDS: MORPHINE SULFATE (*CRX) 2 MG/ML INJ IV PUSH (03:37)
[2023-09-15] MEDS: HYDROcodone/acetaminophen (*CRX) 5-325 MG TABLET 1 TAB PO (04:56)
[2023-09-15 05:01] VITALS: BP 113/68; PULSE 74; RESP 16; O2SAT 99
== END 2023-09-15 05:03 | disposition home or self-care (01) ==
PROVIDERS: Emergency Provider Emergency Medicine
DX: R10.11 Right upper quadrant pain (principal); Z90.49 Acquired absence of other specified parts of digestive tract
CPT/HCPCS: 96374; 96375; 96376; 99284; A9270; J2270; J2405